=== PATIENT | male | born 1980 | race Caucasian/White ===

== ENCOUNTER 2018-11-07 06:24 | Inpatient (IN) ==
[2018-11-07] MEDS ORDERED: ALUMINUM/MAGNESIUM SUSP 30 ML UDC PO PRN (06:25)
[2018-11-07] MEDS ORDERED: MAGNESIUM HYDROXIDE SUSP 30 ML UDC PO PRN (06:25)
[2018-11-07] MEDS ORDERED: BISMUTH SUBSALICYLATE PER ML OMNICELL CHARGE PO PRN (06:25)
[2018-11-07] MEDS ORDERED: SODIUM CHLORIDE 0.65% NA SOLN 45 ML (OCEAN) PRN (06:25)
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
[2018-11-07] MEDS: AMLODIPINE BESYLATE 5 MG TAB PO SCH (16:59)
[2018-11-07] MEDS: DIVALPROEX EXTENDED RELEASE 500 MG TAB PO SCH (21:18)
[2018-11-07] MEDS: risperiDONE 1 MG TABLET PO SCH (21:18)
[2018-11-08 07:16] LABS: Chol HDL Ratio 4; Cholesterol 165 mg/dl (0-200); HDL Cholesterol 43 mg/dl; LDL Cholesterol Calculated 100 mg/dl; Triglycerides 111 mg/dl (0-150); VLDL Cholesterol 22 mg/dl
[2018-11-08] MEDS: PANTOprazole 40 MG TAB PO SCH (09:17)
[2018-11-08] MEDS: ATORVASTATIN 10 MG TAB PO SCH (09:17)
[2018-11-08] MEDS: LORATADINE 10 MG TAB PO SCH (09:17)
[2018-11-08] MEDS: AMLODIPINE BESYLATE 5 MG TAB PO SCH (09:17)
[2018-11-08] MEDS: risperiDONE 1 MG TABLET PO SCH (09:18)
[2018-11-08] MEDS ORDERED: PALIPERIDONE 3 MG TABCR PO STA (10:54)
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
--- NOTE | 2018-11-08 12:21 | Communication Note ---
Date of Service: November 08, 2018 I have personally evaluated Mr. Davy Clarke today. My findings are that he is floridly psychotic and that he is suffering from Schizophrenia. His thought content includes multiple paranoid delusions regarding [place] drug cartels, mass assassinations of his entire family by "The Mafia and the Drug Cartels," beliefs that certain persons are impostors and are posing as his family members , as well as a fixed belief that he has been cured of all illnesses and that he is here in the hospital solely in order to "get people to call my mother, who is Wai Moran, and make a record of all of the evils that are happening so that the drug marshals will take care of the situation." It is my finding that Mr. Clarke is highly unlikely to recover or improve in the absence of the administration of an antipsychotic medication at this time, and I am in agreement with Dr. Ford's opinion that the administration of an antispychotic medication, such as Invega Sustenna, if necessary against the patient's expressed will, is medically necessary and appropriate.
[2018-11-08] MEDS ORDERED: OLANZapine 10 MG/2.1 ML SDV IM PRN ×2 (12:22→14:26)
[2018-11-08] MEDS ORDERED: PALIPERIDONE PALMITATE 234 MG/1.5 ML SYR IM ONE (12:30)
[2018-11-08] MEDS ORDERED: PALIPERIDONE 3 MG TABCR PO ONE (14:45)
[2018-11-08] MEDS: DIVALPROEX EXTENDED RELEASE 500 MG TAB PO SCH (21:15)
[2018-11-08] MEDS ORDERED: PALIPERIDONE 3 MG TABCR PO SCH (22:00)
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
[2018-11-09] MEDS: ATORVASTATIN 10 MG TAB PO SCH (08:25)
[2018-11-09] MEDS: LORATADINE 10 MG TAB PO SCH (08:25)
[2018-11-09] MEDS: AMLODIPINE BESYLATE 5 MG TAB PO SCH (08:25)
[2018-11-09] MEDS: PANTOprazole 40 MG TAB PO SCH (08:25)
[2018-11-09] MEDS ORDERED: PALIPERIDONE PALMITATE 234 MG/1.5 ML SYR IM SCH (09:00)
[2018-11-09] MEDS ORDERED: HALOPERIDOL 5 MG TAB PO STA (17:16)
[2018-11-09] MEDS: DIVALPROEX EXTENDED RELEASE 500 MG TAB PO SCH (20:50)
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
[2018-11-10] MEDS: LORATADINE 10 MG TAB PO SCH (08:59)
[2018-11-10] MEDS: PANTOprazole 40 MG TAB PO SCH (08:59)
[2018-11-10] MEDS: ATORVASTATIN 10 MG TAB PO SCH (08:59)
[2018-11-10] MEDS: AMLODIPINE BESYLATE 5 MG TAB PO SCH (08:59)
[2018-11-10] MEDS: DIVALPROEX EXTENDED RELEASE 500 MG TAB PO SCH (21:12)
[2018-11-11] MEDS: ATORVASTATIN 10 MG TAB PO SCH (08:54)
[2018-11-11] MEDS: PANTOprazole 40 MG TAB PO SCH (08:54)
[2018-11-11] MEDS: LORATADINE 10 MG TAB PO SCH (08:54)
[2018-11-11] MEDS: AMLODIPINE BESYLATE 5 MG TAB PO SCH (08:54)
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
[2018-11-11] MEDS: HALOPERIDOL 5 MG TAB PO PRN (09:20)
[2018-11-11] MEDS: DIVALPROEX EXTENDED RELEASE 500 MG TAB PO SCH ×2 (10:55→21:07)
[2018-11-12] MEDS: PANTOprazole 40 MG TAB PO SCH (09:18)
[2018-11-12] MEDS: DIVALPROEX EXTENDED RELEASE 500 MG TAB PO SCH ×2 (09:18→20:57)
[2018-11-12] MEDS: LORATADINE 10 MG TAB PO SCH (09:19)
[2018-11-12] MEDS: AMLODIPINE BESYLATE 5 MG TAB PO SCH (09:19)
[2018-11-12] MEDS: ATORVASTATIN 10 MG TAB PO SCH (09:19)
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
[2018-11-12] MEDS: FLUTICASONE PROPIONATE NA SPR 16 GM BTL SCH (13:26)
[2018-11-13] MEDS: DIVALPROEX EXTENDED RELEASE 500 MG TAB PO SCH ×2 (08:43→21:13)
[2018-11-13] MEDS: LORATADINE 10 MG TAB PO SCH (08:43)
[2018-11-13] MEDS: FLUTICASONE PROPIONATE NA SPR 16 GM BTL SCH (08:43)
[2018-11-13] MEDS: ATORVASTATIN 10 MG TAB PO SCH (08:44)
[2018-11-13] MEDS: AMLODIPINE BESYLATE 5 MG TAB PO SCH (08:44)
[2018-11-13] MEDS: PANTOprazole 40 MG TAB PO SCH (08:44)
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
[2018-11-13] MEDS: HALOPERIDOL 5 MG TAB PO PRN (10:16)
[2018-11-14] MEDS: LORATADINE 10 MG TAB PO SCH (08:40)
[2018-11-14] MEDS: DIVALPROEX EXTENDED RELEASE 500 MG TAB PO SCH ×2 (08:40→21:00)
[2018-11-14] MEDS: FLUTICASONE PROPIONATE NA SPR 16 GM BTL SCH (08:40)
[2018-11-14] MEDS: ATORVASTATIN 10 MG TAB PO SCH (08:41)
[2018-11-14] MEDS: AMLODIPINE BESYLATE 5 MG TAB PO SCH (08:41)
[2018-11-14] MEDS: PANTOprazole 40 MG TAB PO SCH (08:41)
--- NOTE | 2018-11-14 11:27 | Psychiatric Progress Note ---
Date of Service November 14, 2018 Impression / Recommendations Impression Making slow progress, but still with pressured speech, racing thoughts and inability to identify these symptoms. Will add Haldol 5 mg BID today to slow him down which he is willing to take. Will continue Sustenna with next injection scheduled for Sat 11/16, as well as depakote. He continues to require inpatient care as he is unable to manipulate information in a reality based manner. (1) Schizophrenia: 11/07/18: - Invega 3mg PO qhs (zyprexa 5mg qhs prn as IM override if refusing PO) 11/08/18: Patient refusing and non-compliant with meds outpatient. Will change risperdal to Invega with plan for WHITMAN sustenna today. Patient has been on Invega before, was improved and tolerated medication per collateral obtained. Will obtain second physician opinion for IM override today. Lipid panel was within normal limits. 303 paperwork filled out, likely court hearing on Sunday. - Increase Depakote ER to 1000mg qhs for mood 11/09 -continue current medications; received Invega Sustenna 234 mg IM today. -Continue Depakote for mood stabilization -patient is hyperverbal, pressured, irritable at times. -303 hearing scheduled for Sunday. We will need family meeting with mother once appropriate. -Continue private room until symptoms are better controlled and he can tolerate a roommate. 11/10 -haloperidol 5 mg every 6 hours as needed for psychosis. -Patient signed a release for his mother, will need to schedule a family meeting once he is less psychotic and able to tolerate it. 11/11: 303 hearing resulted in 20 days, patient has been cooperative and taking medications. Next Invega sustenna dose of 156mg due on 11/16/18. VPA level today was 28 and will increase Depakote ER to 500mg qam and 1000mg qhs. Continue prn haldol. 11/12: Patient seems to be with some improvement in mood and paranoia today. Was redirectable and did not perseverate on the neighbors like yesterday. Did report about his mother and that she is his mother. Nursing reports patient remains erratic and has periods of calm. Continue to treat for stabilization. 11/13: continues to be calm and able to have a conversation and answer questions today. Decreased paranoia, but circumstantial and tangential at times. Denies SI /Hi/aVH. Family meeting with mother on Sunday. 11/14 - Add Haldol 5 mg BID - Continue other meds with next Sustenna injection due on 11/16 - Continue efforts to destimulate (2) Hypertension: - Amlodipine 5mg daily (home med) (3) Hyperlipidemia: - Atovastatin 10mg daily (home med) Inventory Assets Strengths: future oriented, access to care Needs: medications and therapy Risk Factors Assessment Male: Yes : Yes Do You Have Access To A Gun?: No Mental Health Diagnoses: Yes Substance Use Disorders: No Hopelessness: No Protective Factors Assessment Responsible for Young Children: No Employed: No Interval History Identifying Information 38 yo male admitted on a 302 with decompensation of schizophrenia in the setting of medication noncompliance Chief Complaint "Oh I'm good. ". Review of Systems Sleep Information Total Hours of Sleep: 8.25 Sleep Comments: pt on q-15 minute checks Meal Information Percent Meal Consumed - Breakfast: 100 Percent Meal Consumed - Lunch: 100 Percent Meal Consumed - Dinner: 100 Subjective Subjective Patient was seen & assessed and interval progress reviewed with Treatment Team. The patient is noted to talk non stop but will allow me to interrupt him and direct him to the conversation at hand. He is tangential and circumstantial, talking about his mother Nichol and teachers from his past. He admits that his thoughts go "as fast as a I can talk", but denies elevated energy. He thinks that he slept well last night but can't quantify that. He ramble on about having been born deaf, blind and mute and took him years to learn to talk. He randomly says that he has no thoughts to harm his teachers from the past whom he believes did not understand his disabilities. He denies aud/vis hallucinations, denies side effects to medications. He denies physical complaints today including sedation. Physical Exam Psychiatric Orientation: alert and cooperative Apperance: appropriately dressed and appropriately groomed Eye Contact: good eye contact Motor Behavior: steady gait and station and no abnormal motor movements pressured Affect: + blunted affect Mood: no depressed mood and no anxious mood Thought Process: + circumstantial thought process and + tangential thought process Thought Content: + delusions Suicidal Thoughts: denies suicidal thoughts Homicidal Thoughts: denies homicidal thoughts Hallucinations: no auditory hallucinations and no visual hallucinations Cognition: language grossly intact Estimated Intelligence: + below average estimated intelligence Insight: + severely impaired insight Judgement: + severely impaired judgement Vital Signs (Past 24 Hours) Last Vital Signs Temp 36.3 C L 11/14/18 07:01 Pulse 85 11/14/18 07:02 Resp 18 11/14/18 07:01 BP 130/89 11/14/18 07:02 Results & Data Current Inpatient Medications Current Inpatient Medications: Current Inpatient Medications Al Hydrox/Mg Hydrox/Simethicone (Maalox) 30 ml PO Q4H PRN PRN Reason: GI Upset Stop: 12/07/18 06:24 Amlodipine Besylate (Norvasc) 5 mg PO QAM COUNTS INCLUDE 234 BEDS AT [facility] Stop: 12/07/18 15:44 Last Admin: 11/14/18 08:41 Dose: 5 mg Atorvastatin Calcium (Lipitor) 10 mg PO QAM COUNTS INCLUDE 234 BEDS AT [facility] Stop: 12/08/18 08:59 Last Admin: 11/14/18 08:41 Dose: 10 mg Bismuth Subsalicylate (Kaopectate) 15 ml PO PRN PRN PRN Reason: Loose Stool Stop: 12/07/18 06:24 Divalproex Sodium (Depakote Extended Release) 500 mg PO QAM COUNTS INCLUDE 234 BEDS AT [facility] Stop: 12/11/18 10:14 Last Admin: 11/14/18 08:40 Dose: 500 mg Divalproex Sodium (Depakote Extended Release) 1,000 mg PO HS COUNTS INCLUDE 234 BEDS AT [facility] Stop: 12/11/18 21:59 Last Admin: 11/13/18 21:13 Dose: 1,000 mg Fluticasone Propionate (Flonase) 1 sprays NA DAILY COUNTS INCLUDE 234 BEDS AT [facility] Stop: 12/12/18 09:59 Last Admin: 11/14/18 08:40 Dose: 1 sprays Haloperidol (Haldol) 5 mg PO Q4H PRN PRN Reason: psychosis Stop: 12/10/18 08:45 Last Admin: 11/13/18 10:16 Dose: 5 mg Haloperidol (Haldol) 5 mg PO BID COUNTS INCLUDE 234 BEDS AT [facility] Stop: 12/14/18 11:29 Hydroxyzine HCl (Vistaril) 50 mg PO HSZ PRN PRN Reason: Insomnia Stop: 12/07/18 06:24 Hydroxyzine HCl (Vistaril) 25 mg PO Q4H PRN PRN Reason: Anxiety Stop: 12/07/18 06:24 Last Admin: 11/11/18 12:56 Dose: 25 mg Loratadine (Claritin) 10 mg PO QAM SEAN Stop: 12/08/18 08:59 Last Admin: 11/14/18 08:40 Dose: 10 mg Magnesium Hydroxide (Milk Of Magnesia) 30 ml PO DAILY PRN PRN Reason: Heartburn Stop: 12/07/18 06:24 Paliperidone Palmitate (Invega Sustenna) 156 mg IM ONCE ONE Stop: 11/16/18 10:01 Pantoprazole Sodium (Protonix) 40 mg PO QAM COUNTS INCLUDE 234 BEDS AT [facility] Stop: 12/08/18 08:59 Last Admin: 11/14/18 08:41 Dose: 40 mg Sodium Chloride ([place] Nasal) 1 - 2 sprays NA PRN PRN PRN Reason: Nasal Dryness/Congestion Stop: 12/07/18 06:24 Post Discharge Appointments Primary Care Physician Name Of Family Doctor: unknown Psychiatrist Name of Psychiatrist: [facility] Appointment Comment: [facility] [address], [place] [address] [address] Auto Cleaner Name of Auto Cleaner: [facility] Phone Number for Auto Cleaner: [phone] Date of Appointment with Auto Cleaner: 11/21/18 Time of Appointment with Auto Cleaner: 10am Case Management Appointment Comment: [address] [place] [address] Contact Information Discharge Discharge Address: [address] [place], [place] [address] [facility] CPT Code CPT Code 73108 _ (1) Schizophrenia Schizophrenia type: paranoid schizophrenia Qualified Code(s): F20.0 - Paranoid schizophrenia (2) Hypertension Hypertension type: unspecified Qualified Code(s): I10 - Essential (primary) hypertension (3) Hyperlipidemia Hyperlipidemia type: unspecified Qualified Code(s): E78.5 - Hyperlipidemia, unspecified
[2018-11-14] MEDS: HALOPERIDOL 5 MG TAB PO SCH ×2 (11:47→21:00)
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
[2018-11-15] MEDS: LORATADINE 10 MG TAB PO SCH (10:09)
[2018-11-15] MEDS: FLUTICASONE PROPIONATE NA SPR 16 GM BTL SCH (10:09)
[2018-11-15] MEDS: ATORVASTATIN 10 MG TAB PO SCH (10:10)
[2018-11-15] MEDS: DIVALPROEX EXTENDED RELEASE 500 MG TAB PO SCH ×2 (10:10→21:36)
[2018-11-15] MEDS: PANTOprazole 40 MG TAB PO SCH (10:12)
[2018-11-15] MEDS: AMLODIPINE BESYLATE 5 MG TAB PO SCH (10:12)
[2018-11-15] MEDS: HALOPERIDOL 5 MG TAB PO SCH ×2 (10:14→21:36)
[2018-11-15] MEDS: HALOPERIDOL 5 MG TAB PO PRN (13:44)
[2018-11-16] MEDS: DIVALPROEX EXTENDED RELEASE 500 MG TAB PO SCH ×2 (08:32→21:47)
[2018-11-16] MEDS: LORATADINE 10 MG TAB PO SCH (08:32)
[2018-11-16] MEDS: FLUTICASONE PROPIONATE NA SPR 16 GM BTL SCH (08:32)
[2018-11-16] MEDS: ATORVASTATIN 10 MG TAB PO SCH (08:33)
[2018-11-16] MEDS: PANTOprazole 40 MG TAB PO SCH (08:33)
[2018-11-16] MEDS: AMLODIPINE BESYLATE 5 MG TAB PO SCH (08:33)
[2018-11-16] MEDS: HALOPERIDOL 5 MG TAB PO SCH ×2 (08:33→21:47)
[2018-11-16] MEDS ORDERED: PALIPERIDONE PALMITATE 156 MG/ML SYR IM ONE (10:00)
--- NOTE | 2018-11-16 13:02 | Psychiatric Progress Note ---
Date of Service November 16, 2018 Impression / Recommendations Impression 38 yo CM with h/o schizophrenia who was admitted for acute decompensation. Patient started on invega WHITMAN and received second dose today. Also depakote was started and patient seems to be improved since admission. Seems that yesterday familiy meeting with mother was somewhat erratic and patient will need continued work on coping skills to show stability. Will observe for improvement after second invega dose today and work on discharge planning. At this time gualberto denies SI/HI/aVH and has much decreased paranoid delusions from admission. (1) Schizophrenia: 11/07/18: - Invega 3mg PO qhs (zyprexa 5mg qhs prn as IM override if refusing PO) 11/08/18: Patient refusing and non-compliant with meds outpatient. Will change risperdal to Invega with plan for WHITMAN sustenna today. Patient has been on Invega before, was improved and tolerated medication per collateral obtained. Will obtain second physician opinion for IM override today. Lipid panel was within normal limits. 303 paperwork filled out, likely court hearing on Sunday. - Increase Depakote ER to 1000mg qhs for mood 11/09 -continue current medications; received Invega Sustenna 234 mg IM today. -Continue Depakote for mood stabilization -patient is hyperverbal, pressured, irritable at times. -303 hearing scheduled for Sunday. We will need family meeting with mother once appropriate. -Continue private room until symptoms are better controlled and he can tolerate a roommate. 11/10 -haloperidol 5 mg every 6 hours as needed for psychosis. -Patient signed a release for his mother, will need to schedule a family meeting once he is less psychotic and able to tolerate it. 11/11: 303 hearing resulted in 20 days, patient has been cooperative and taking medications. Next Invega sustenna dose of 156mg due on 11/16/18. VPA level today was 28 and will increase Depakote ER to 500mg qam and 1000mg qhs. Continue prn haldol. 11/12: Patient seems to be with some improvement in mood and paranoia today. Was redirectable and did not perseverate on the neighbors like yesterday. Did report about his mother and that she is his mother. Nursing reports patient remains erratic and has periods of calm. Continue to treat for stabilization. 11/13: continues to be calm and able to have a conversation and answer questions today. Decreased paranoia, but circumstantial and tangential at times. Denies SI /Hi/aVH. Family meeting with mother on Tuesday 11/14 - Add Haldol 5 mg BID - Continue other meds with next Sustenna injection due on 11/16 - Continue efforts to destimulate 11/15 - Continue current medication regimen - Second loading injection for Sustenna scheduled for 11/16 - Family meeting scheduled for this afternoon with his mother 11/16 -Continue treatment for stabilization -Second loading invega given today (2) Hypertension: - Amlodipine 5mg daily (home med) (3) Hyperlipidemia: - Atovastatin 10mg daily (home med) Inventory Assets Strengths: future oriented, access to care Needs: medications and therapy Risk Factors Assessment Male: Yes : Yes Do You Have Access To A Gun?: No Mental Health Diagnoses: Yes Substance Use Disorders: No Hopelessness: No Protective Factors Assessment Responsible for Young Children: No Employed: No Interval History Identifying Information 38 yo male admitted on a 302 with decompensation of schizophrenia in the setting of medication noncompliance. Pt was admitted involuntarily on 11/07/18 13:50, 303 was granted on 11/11/18. Chief Complaint "I'm ok". Review of Systems Sleep Information Total Hours of Sleep: 7.75 Sleep Comments: pt on q-15 minute checks Meal Information Percent Meal Consumed - Breakfast: 100 Percent Meal Consumed - Lunch: 100 Percent Meal Consumed - Dinner: 100 Subjective Subjective Patient reports that he is working on his coping skills to control his anger and mood. He states he got the invega shot today and is kind of sleepy. States he wants to help his mother, but he needs to let her be and only help when she asks, to avoid problems. He denies SI/HI/AVH. Per nursing, patient is calm and cooperative on the unit. Patient was seen & assessed and interval progress reviewed with Treatment Team and Nursing Physical Exam Psychiatric A+Ox3, euthymic affect Apperance: appropriately dressed and appropriately groomed Eye Contact: good eye contact Motor Behavior: no abnormal motor movements Speech: normal rate/rhythm/volume of speech Affect: euthymic affect and mood congruent with affect Thought Process: goal directed thought process and + circumstantial thought process Thought Content: not paranoid and no delusions Suicidal Thoughts: denies suicidal thoughts Homicidal Thoughts: denies homicidal thoughts Hallucinations: no auditory hallucinations and no visual hallucinations denies Cognition: recent memory grossly intact and remote memory grossly intact Estimated Intelligence: + below average estimated intelligence improving improving Vital Signs (Past 24 Hours) Last Vital Signs Temp 36.5 C 11/16/18 06:39 Pulse 90 11/16/18 06:39 Resp 18 11/16/18 06:39 BP 123/90 11/16/18 06:39 Results & Data Current Inpatient Medications Current Inpatient Medications: Current Inpatient Medications Al Hydrox/Mg Hydrox/Simethicone (Maalox) 30 ml PO Q4H PRN PRN Reason: GI Upset Stop: 12/07/18 06:24 Amlodipine [facility] ([facility]) [facility]: 12/07/18 15:44 Last Admin: 11/16/18 08:33 Dose: 5 mg Atorvastatin Calcium (Lipitor) 10 [facility] [place] Stop: 12/08/18 08:59 Last Admin: 11/16/18 08:33 Dose: 10 mg Bismuth Subsalicylate (Kaopectate) 15 ml PO PRN PRN PRN Reason: Loose Stool Stop: 12/07/18 06:24 Divalproex Sodium (Depakote Extended Release) 500 mg [facility] [place] Stop: 12/11/18 10:14 Last Admin: 11/16/18 08:32 Dose: 500 mg Divalproex Sodium (Depakote Extended Release) 1,000 mg PO [facility] Stop: 12/11/18 21:59 Last Admin: 11/15/18 21:36 Dose: 1,000 mg Fluticasone Propionate (Flonase) 1 sprays NA DAILY [facility] Stop: 12/12/18 09:59 Last Admin: 11/16/18 08:32 Dose: 1 sprays Haloperidol (Haldol) 5 mg PO Q4H PRN PRN Reason: psychosis Stop: 12/10/18 08:45 Last Admin: 11/15/18 13:44 Dose: 5 mg Haloperidol (Haldol) 5 mg PO BID [facility] Stop: 12/14/18 11:29 Last Admin: 11/16/18 08:33 Dose: 5 mg Hydroxyzine HCl (Vistaril) 50 mg PO HSZ PRN PRN Reason: Insomnia Stop: 12/07/18 06:24 Hydroxyzine HCl (Vistaril) 25 mg PO Q4H PRN PRN Reason: Anxiety Stop: 12/07/18 06:24 Last Admin: 11/11/18 12:56 Dose: 25 mg Loratadine (Claritin) 10 mg PO QAM [facility] Stop: 12/08/18 08:59 Last Admin: 11/16/18 08:32 Dose: 10 mg Magnesium Hydroxide (Milk Of Magnesia) 30 ml PO DAILY PRN PRN Reason: Heartburn Stop: 12/07/18 06:24 Pantoprazole Sodium (Protonix) 40 mg PO QAM [facility] Stop: 12/08/18 08:59 Last Admin: 11/16/18 08:33 Dose: 40 mg Sodium Chloride ([place] Nasal) 1 - 2 sprays NA PRN PRN PRN Reason: Nasal Dryness/Congestion Stop: 12/07/18 06:24 Post Discharge Appointments Primary Care Physician Name Of Family Doctor: [facility] - Dr Rodrick Antonio Primary Care Date of Appointment with PCP: 11/25/18 Time of Appointment with PCP: 9am Provider Appointment Comment: [address] [address], [place] [address] Psychiatrist Name of Psychiatrist: [facility] - to be set after intake completed Psychiatrist's Time of Appointment with Psychiatrist: Walk-ins: Tues, Wed, and Thur between 8- 3pm Psychiatric Appointment Comment: [address], [place] [address] Therapist Name of Therapist: [facility] - Intake is walk-in only Therapist's Date of Therapist Appointment: 11/19/18 Time of Therapist Appointment: Walk-ins: Tues, Wed, and Thur between 8-3pm Therapy Appointment Comment: [address], [address], [place] [address] Compensation Specialist Name of Compensation Specialist: [facility] Phone Number for Compensation Specialist: [phone] Date of Appointment with Compensation Specialist: 11/21/18 Time of Appointment with Compensation Specialist: 10am Case Management Appointment Comment: [address] [place] [address] Partial or Psych Rehab Name of Partial or Psych Rehab: [facility] Phone Number of Partial or Psych Rehab: [phone] Partial or Psych Rehab Appointment Comment: [address] [place], [place] [address] [address] Senior Center Manager Name of Senior Center Manager: [facility] Phone Number of Senior Center Manager: [phone] Senior Center Manager Appointment Comment: [address] [place], [place] [address] [address] Contact Information Discharge Discharge Address: [address] [place] [address] [place] [address] CPT Code CPT Code 02711 _ (1) Schizophrenia Schizophrenia type: paranoid schizophrenia Qualified Code(s): F20.0 - Paranoid schizophrenia (2) Hypertension Hypertension type: unspecified Qualified Code(s): I10 - Essential (primary) hypertension (3) Hyperlipidemia Hyperlipidemia type: unspecified Qualified Code(s): E78.5 - Hyperlipidemia, unspecified
[2018-11-17] MEDS: DIVALPROEX EXTENDED RELEASE 500 MG TAB PO SCH ×2 (08:53→21:29)
[2018-11-17] MEDS: LORATADINE 10 MG TAB PO SCH (08:53)
[2018-11-17] MEDS: FLUTICASONE PROPIONATE NA SPR 16 GM BTL SCH (08:53)
[2018-11-17] MEDS: AMLODIPINE BESYLATE 5 MG TAB PO SCH (08:54)
[2018-11-17] MEDS: HALOPERIDOL 5 MG TAB PO SCH ×2 (08:54→21:29)
[2018-11-17] MEDS: PANTOprazole 40 MG TAB PO SCH (08:54)
[2018-11-17] MEDS: ATORVASTATIN 10 MG TAB PO SCH (08:54)
--- NOTE | 2018-11-17 12:19 | Psychiatric Progress Note ---
Date of Service November 17, 2018 Impression / Recommendations Impression 38 yo CM with h/o schizophrenia who was admitted for acute decompensation. Patient started on invega CHURCH and received second dose today. Also depakote was started and patient seems to be improved since admission. Seems that 11/15 familiy meeting with mother was somewhat erratic and patient will need continued work on coping skills to show stability. Will observe for improvement after second invega dose and work on discharge planning. (1) Schizophrenia: 11/07/18: - Invega 3mg PO qhs (zyprexa 5mg qhs prn as IM override if refusing PO) 11/08/18: Patient refusing and non-compliant with meds outpatient. Will change risperdal to Invega with plan for CHURCH sustenna today. Patient has been on Invega before, was improved and tolerated medication per collateral obtained. Will obtain second physician opinion for IM override today. Lipid panel was within normal limits. 303 paperwork filled out, likely court hearing on Sunday. - Increase Depakote ER to 1000mg qhs for mood 11/09 -continue current medications; received Invega Sustenna 234 mg IM today. -Continue Depakote for mood stabilization -patient is hyperverbal, pressured, irritable at times. -303 hearing scheduled for Sunday. We will need family meeting with mother once appropriate. -Continue private room until symptoms are better controlled and he can tolerate a roommate. 11/10 -haloperidol 5 mg every 6 hours as needed for psychosis. -Patient signed a release for his mother, will need to schedule a family meeting once he is less psychotic and able to tolerate it. 11/11: 303 hearing resulted in 20 days, patient has been cooperative and taking medications. Next Invega sustenna dose of 156mg due on 11/16/18. VPA level today was 28 and will increase Depakote ER to 500mg qam and 1000mg qhs. Continue prn haldol. 11/12: Patient seems to be with some improvement in mood and paranoia today. Was redirectable and did not perseverate on the neighbors like yesterday. Did report about his mother and that she is his mother. Nursing reports patient remains erratic and has periods of calm. Continue to treat for stabilization. 11/13: continues to be calm and able to have a conversation and answer questions today. Decreased paranoia, but circumstantial and tangential at times. Denies SI /Hi/aVH. Family meeting with mother on Tuesday 11/14 - Add Haldol 5 mg BID - Continue other meds with next Sustenna injection due on 11/16 - Continue efforts to destimulate 11/15 - Continue current medication regimen - Second loading injection for Sustenna scheduled for 11/16 - Family meeting scheduled for this afternoon with his mother 11/16 -Continue treatment for stabilization -Second loading invega given today 11/17 -Continue current medications -No side effects from invega noted -discharge planning (2) Hypertension: - Amlodipine 5mg daily (home med) (3) Hyperlipidemia: - Atovastatin 10mg daily (home med) Inventory Assets Strengths: future oriented, access to care Needs: medications and therapy Risk Factors Assessment Male: Yes : Yes Do You Have Access To A Gun?: No Mental Health Diagnoses: Yes Substance Use Disorders: No Hopelessness: No Protective Factors Assessment Responsible for Young Children: No Employed: No Interval History Identifying Information 38 yo male admitted on a 302 with decompensation of schizophrenia in the setting of medication noncompliance. Pt was admitted involuntarily on 11/07/18 13:50, 303 was granted on 11/11/18. Review of Systems Sleep Information Total Hours of Sleep: 7.75 Sleep Comments: pt on q-15 minute checks Meal Information Percent Meal Consumed - Breakfast: 100 Percent Meal Consumed - Lunch: 100 Percent Meal Consumed - Dinner: 100 Subjective Subjective Patient reports he is feeling ok today and was found laying in bed. States that he feels he needed some rest so was laying down. Denies Si/HI/aVH and denies feeling any side effects from the invega church given yesterday. He states "I just gotta let my mom worry about her own things and me worry about mine, then things will be ok". He was encouraged to call his mother and talk to her as a follow up to a less than ideal family meeting recently. Per nursing, patient has remained stable and cooperative on unit. Patient was seen & assessed and interval progress reviewed with Treatment Team and Nursing Physical Exam Psychiatric A+Ox3, euthymic affect Apperance: appropriately dressed and appropriately groomed Eye Contact: + fair eye contact Motor Behavior: no abnormal motor movements Speech: normal rate/rhythm/volume of speech Affect: euthymic affect and mood congruent with affect Thought Process: linear/logical thought process Thought Content: not paranoid and no delusions Suicidal Thoughts: denies suicidal thoughts Homicidal Thoughts: denies homicidal thoughts Hallucinations: no auditory hallucinations and no visual hallucinations Cognition: recent memory grossly intact and remote memory grossly intact Estimated Intelligence: + below average estimated intelligence improving improving Vital Signs (Past 24 Hours) Last Vital Signs Temp 36.7 C 11/17/18 06:31 Pulse 105 H 11/17/18 06:32 Resp 16 11/17/18 06:31 BP 119/70 11/17/18 06:32 Results & Data Current Inpatient Medications Current Inpatient Medications: Current Inpatient Medications Al Hydrox/Mg Hydrox/Simethicone (Maalox) 30 ml PO Q4H PRN PRN Reason: GI Upset Stop: 12/07/18 06:24 Amlodipine Bes[facility]) [facility] Stop: 12/07/18 15:44 Last Admin: 11/17/18 08:54 Dose: 5 mg Atorvastatin Calcium (Lipitor) [facility] Stop: 12/08/18 08:59 Last Admin: 11/17/18 08:54 Dose: 10 mg Bismuth Subsalicylate (Kaopectate) 15 ml PO PRN PRN PRN Reason: Loose Stool Stop: 12/07/18 06:24 Divalproex Sodium (Depakote Extended Release) 500 mg PO QAM [facility] Stop: 12/11/18 10:14 Last Admin: 11/17/18 08:53 Dose: 500 mg Divalproex Sodium (Depakote Extended Release) 1,000 mg PO HS [facility] Stop: 12/11/18 21:59 Last Admin: 11/16/18 21:47 Dose: 1,000 mg Fluticasone Propionate (Flonase) 1 sprays NA DAILY [facility] Stop: 12/12/18 09:59 Last Admin: 11/17/18 08:53 Dose: 1 sprays Haloperidol (Haldol) 5 mg PO Q4H PRN PRN Reason: psychosis Stop: 12/10/18 08:45 Last Admin: 11/15/18 13:44 Dose: 5 mg Haloperidol (Haldol) 5 mg PO BID [facility] Stop: 12/14/18 11:29 Last Admin: 11/17/18 08:54 Dose: 5 mg Hydroxyzine HCl (Vistaril) 50 mg PO HSZ PRN PRN Reason: Insomnia Stop: 12/07/18 06:24 Hydroxyzine HCl (Vistaril) 25 mg PO Q4H PRN PRN Reason: Anxiety Stop: 12/07/18 06:24 Last Admin: 11/11/18 12:56 Dose: 25 mg Loratadine (Claritin) 10 mg PO QAM [facility] Stop: 12/08/18 08:59 Last Admin: 11/17/18 08:53 Dose: 10 mg Magnesium Hydroxide (Milk Of Magnesia) 30 ml PO DAILY PRN PRN Reason: Heartburn Stop: 12/07/18 06:24 Pantoprazole Sodium (Protonix) 40 mg PO QAM [facility] Stop: 12/08/18 08:59 Last Admin: 11/17/18 08:54 Dose: 40 mg Sodium Chloride (Cuthbert Nasal) 1 - 2 sprays NA PRN PRN PRN Reason: Nasal Dryness/Congestion Stop: 12/07/18 06:24 Post Discharge Appointments Primary Care Physician Name Of Family Doctor: [facility] - Dr Rodrick Antonio Primary Care Date of Appointment with PCP: 11/25/18 Time of Appointment with PCP: 9am Provider Appointment Comment: [address], [place] [address] Psychiatrist Name of Psychiatrist: [facility] - to be set after intake completed Psychiatrist's Time of Appointment with Psychiatrist: Walk-ins: Tues, Wed, and Thur between 8- 3pm Psychiatric Appointment Comment: [address], [place] [address] Therapist Name of Therapist: [facility] - Intake is walk-in only Therapist's Date of Therapist Appointment: 11/19/18 Time of Therapist Appointment: Walk-ins: Tues, Wed, and Thur between 8-3pm Therapy Appointment Comment: [address], [place] [address] Industrial Photographer Name of Industrial Photographer: [facility] Phone Number for Industrial Photographer: [phone] Date of Appointment with Industrial Photographer: 11/21/18 Time of Appointment with Industrial Photographer: 10am Case Management Appointment Comment: [address] [place] [address] Partial or Psych Rehab Name of Partial or Psych Rehab: [facility] Phone Number of Partial or Psych Rehab: [phone] Partial or Psych Rehab Appointment Comment: [address] [place], [place] [address] [address] Railcar Switcher Name of Railcar Switcher: [facility] Phone Number of Railcar Switcher: [phone] Railcar Switcher Appointment Comment: [address] [place], [place] [address] [address] Contact Information Discharge Discharge Address: [address] [place], [place] [address] [address] CPT Code CPT Code 38809 _ (1) Schizophrenia Schizophrenia type: paranoid schizophrenia Qualified Code(s): F20.0 - Paranoid schizophrenia (2) Hypertension Hypertension type: unspecified Qualified Code(s): I10 - Essential (primary) hypertension (3) Hyperlipidemia Hyperlipidemia type: unspecified Qualified Code(s): E78.5 - Hyperlipidemia, unspecified
[2018-11-18] MEDS: AMLODIPINE BESYLATE 5 MG TAB PO SCH (08:35)
[2018-11-18] MEDS: ATORVASTATIN 10 MG TAB PO SCH (08:35)
[2018-11-18] MEDS: HALOPERIDOL 5 MG TAB PO SCH ×2 (08:35→21:19)
[2018-11-18] MEDS: PANTOprazole 40 MG TAB PO SCH (08:35)
[2018-11-18] MEDS: LORATADINE 10 MG TAB PO SCH (08:35)
[2018-11-18] MEDS: DIVALPROEX EXTENDED RELEASE 500 MG TAB PO SCH ×2 (08:36→21:19)
[2018-11-18] MEDS: FLUTICASONE PROPIONATE NA SPR 16 GM BTL SCH (08:36)
--- NOTE | 2018-11-18 09:37 | Psychiatric Progress Note ---
Date of Service November 18, 2018 Impression / Recommendations Impression 38 yo CM with h/o schizophrenia who was admitted for acute decompensation. Patient started on invega WHITMAN and received second dose today. Also depakote was started and patient seems to be improved since admission. Seems that 11/15 familiy meeting with mother was somewhat erratic and patient will need continued work on coping skills to show stability. Patient is with improved insight and mood stability. Discharge planning with follow ups and collateral pending. Patient denies SI/HI/aVH and if remains stable without safety concerns , will plan for discharge tomorrow. (1) Schizophrenia: 11/07/18: - Invega 3mg PO qhs (zyprexa 5mg qhs prn as IM override if refusing PO) 11/08/18: Patient refusing and non-compliant with meds outpatient. Will change risperdal to Invega with plan for WHITMAN sustenna today. Patient has been on Invega before, was improved and tolerated medication per collateral obtained. Will obtain second physician opinion for IM override today. Lipid panel was within normal limits. 303 paperwork filled out, likely court hearing on Sunday. - Increase Depakote ER to 1000mg qhs for mood 11/09 -continue current medications; received Invega Sustenna 234 mg IM today. -Continue Depakote for mood stabilization -patient is hyperverbal, pressured, irritable at times. -303 hearing scheduled for Sunday. We will need family meeting with mother once appropriate. -Continue private room until symptoms are better controlled and he can tolerate a roommate. 11/10 -haloperidol 5 mg every 6 hours as needed for psychosis. -Patient signed a release for his mother, will need to schedule a family meeting once he is less psychotic and able to tolerate it. 11/11: 303 hearing resulted in 20 days, patient has been cooperative and taking medications. Next Invega sustenna dose of 156mg due on 11/16/18. VPA level today was 28 and will increase Depakote ER to 500mg qam and 1000mg qhs. Continue prn haldol. 11/12: Patient seems to be with some improvement in mood and paranoia today. Was redirectable and did not perseverate on the neighbors like yesterday. Did report about his mother and that she is his mother. Nursing reports patient remains erratic and has periods of calm. Continue to treat for stabilization. 11/13: continues to be calm and able to have a conversation and answer questions today. Decreased paranoia, but circumstantial and tangential at times. Denies SI /Hi/aVH. Family meeting with mother on Tuesday 11/14 - Add Haldol 5 mg BID - Continue other meds with next Sustenna injection due on 11/16 - Continue efforts to destimulate 11/15 - Continue current medication regimen - Second loading injection for Sustenna scheduled for 11/16 - Family meeting scheduled for this afternoon with his mother 11/16 -Continue treatment for stabilization -Second loading invega given today 11/17 -Continue current medications -No side effects from invega noted -discharge planning 11/18 -Continue current regimen -work on coping mechanisms -discharge planning (2) Hypertension: - Amlodipine 5mg daily (home med) (3) Hyperlipidemia: - Atovastatin 10mg daily (home med) Inventory Assets Strengths: future oriented, access to care Needs: medications and therapy Risk Factors Assessment Male: Yes : Yes Do You Have Access To A Gun?: No Mental Health Diagnoses: Yes Substance Use Disorders: No Hopelessness: No Protective Factors Assessment Responsible for Young Children: No Employed: No Interval History Identifying Information 38 yo male admitted on a 302 with decompensation of schizophrenia in the setting of medication noncompliance. Pt was admitted involuntarily on 11/07/18 13:50, 303 was granted on 11/11/18. Chief Complaint "I'm ok". Review of Systems Sleep Information Total Hours of Sleep: 7 Sleep Comments: pt on q-15 minute checks Meal Information Percent Meal Consumed - Breakfast: 100 Percent Meal Consumed - Lunch: 100 Percent Meal Consumed - Dinner: 100 Subjective Subjective Patient reports he took a shower this morning and feels refreshed. He states that he tried to contact his mother yesterday but couldn't get in touch with her. Reports that he has been working on his anger and if he were to feel this way at home, would go for a walk or join the choir group that helps him calm down. He states he can live with a friend if his mother doesn't want him there. He denies any major difficulty with sleep and denies SI/HI/aVH. Per nursing he has been compliant with meds and is cooperative on the unit. Patient was seen & assessed and interval progress reviewed with Treatment Team and Nursing Physical Exam Psychiatric A+Ox3, euthymic affect Apperance: appropriately dressed and appropriately groomed Eye Contact: + fair eye contact Motor Behavior: no abnormal motor movements Speech: normal rate/rhythm/volume of speech Affect: euthymic affect and mood congruent with affect Thought Process: linear/logical thought process Thought Content: not paranoid and no delusions Suicidal Thoughts: denies suicidal thoughts Homicidal Thoughts: denies homicidal thoughts Hallucinations: no auditory hallucinations and no visual hallucinations Cognition: recent memory grossly intact Estimated Intelligence: + below average estimated intelligence Insight: + fair insight Judgement: + fair judgement Vital Signs (Past 24 Hours) Last Vital Signs Temp 36.6 C 11/18/18 07:00 Pulse 99 H 11/18/18 07:01 Resp 18 11/18/18 07:00 BP 117/81 11/18/18 07:01 Results & Data Current Inpatient Medications Current Inpatient Medications: Current Inpatient Medications Al Hydrox/Mg Hydrox/Simethicone (Maalox) 30 ml PO Q4H PRN PRN Reason: GI Upset Stop: 12/07/18 06:24 Amlodipine Besylate (Norvasc) 5 mg PO QAM [facility] Stop: 12/07/18 15:44 Last Admin: 11/18/18 08:35 Dose: 5 mg Atorvastatin Calcium (Lipitor) 10 mg PO QAM [facility] Stop: 12/08/18 08:59 Last Admin: 11/18/18 08:35 Dose: 10 mg Bismuth Subsalicylate (Kaopectate) 15 ml PO PRN PRN PRN Reason: Loose Stool Stop: 12/07/18 06:24 Divalproex Sodium (Depakote Extended Release) 500 mg PO QAM [facility] Stop: 12/11/18 10:14 Last Admin: 11/18/18 08:36 Dose: 500 mg Divalproex Sodium (Depakote Extended Release) 1,000 mg PO HS [facility] Stop: 12/11/18 21:59 Last Admin: 11/17/18 21:29 Dose: 1,000 mg Fluticasone Propionate (Flonase) 1 sprays NA DAILY [facility] Stop: 12/12/18 09:59 Last Admin: 11/18/18 08:36 Dose: 1 sprays Haloperidol (Haldol) 5 mg PO Q4H PRN PRN Reason: psychosis Stop: 12/10/18 08:45 Last Admin: 11/15/18 13:44 Dose: 5 mg Haloperidol (Haldol) 5 mg PO BID [facility] Stop: 12/14/18 11:29 Last Admin: 11/18/18 08:35 Dose: 5 mg Hydroxyzine HCl (Vistaril) 50 mg PO HSZ PRN PRN Reason: Insomnia Stop: 12/07/18 06:24 Hydroxyzine HCl (Vistaril) 25 mg PO Q4H PRN PRN Reason: Anxiety Stop: 12/07/18 06:24 Last Admin: 11/11/18 12:56 Dose: 25 mg Loratadine (Claritin) 10 mg PO QAM [facility] Stop: 12/08/18 08:59 Last Admin: 11/18/18 08:35 Dose: 10 mg Magnesium Hydroxide (Milk Of Magnesia) 30 ml PO DAILY PRN PRN Reason: Heartburn Stop: 12/07/18 06:24 Pantoprazole Sodium (Protonix) 40 mg PO QAM [facility] Stop: 12/08/18 08:59 Last Admin: 11/18/18 08:35 Dose: 40 mg Sodium Chloride (Brilliant Nasal) 1 - 2 sprays NA PRN PRN PRN Reason: Nasal Dryness/Congestion Stop: 12/07/18 06:24 Post Discharge Appointments Primary Care Physician Name Of Family Doctor: [facility] - Dr Rodrick Antonio Primary Care Date of Appointment with PCP: 11/25/18 Time of Appointment with PCP: 9am Provider Appointment Comment: [address], [place] [address] Psychiatrist Name of Psychiatrist: [facility] - to be set after intake completed Psychiatrist's Time of Appointment with Psychiatrist: Walk-ins: Tues, Wed, and Thur between 8- 3pm Psychiatric Appointment Comment: [address], [place] [address] Therapist Name of Therapist: [facility] - Intake is walk-in only Therapist's Date of Therapist Appointment: 11/19/18 Time of Therapist Appointment: Walk-ins: Tues, Wed, and Thur between 8-3pm Therapy Appointment Comment: [address], [place] [address] Blood Bank Laboratory Technologist Name of Blood Bank Laboratory Technologist: [facility] Phone Number for Blood Bank Laboratory Technologist: [phone] Date of Appointment with Blood Bank Laboratory Technologist: 11/21/18 Time of Appointment with Blood Bank Laboratory Technologist: 10am Case Management Appointment Comment: [address] [facility] [place] [address] Partial or Psych Rehab Name of Partial or Psych Rehab: [facility] Phone Number of Partial or Psych Rehab: [phone] Partial or Psych Rehab Appointment Comment: [address] [place] [address] Garden Tractor Mechanic Name of Garden Tractor Mechanic: [facility] Phone Number of Garden Tractor Mechanic: [phone] Garden Tractor Mechanic Appointment Comment: [address] [place], [place] [address] [address] Contact Information Discharge Discharge Address: [address] [place], [place] [address] [facility] CPT Code CPT Code 06576 [id number] _ (1) Schizophrenia Schizophrenia type: paranoid schizophrenia Qualified Code(s): F20.0 - Paranoid schizophrenia (2) Hypertension Hypertension type: unspecified Qualified Code(s): I10 - Essential (primary) hypertension (3) Hyperlipidemia Hyperlipidemia type: unspecified Qualified Code(s): E78.5 - Hyperlipidemia, unspecified
[2018-11-18] MEDS: CITALOPRAM 20 MG TAB PO SCH (15:28)
[2018-11-19] MEDS: FLUTICASONE PROPIONATE NA SPR 16 GM BTL SCH (07:47)
[2018-11-19] MEDS: CITALOPRAM 20 MG TAB PO SCH (07:48)
[2018-11-19] MEDS: HALOPERIDOL 5 MG TAB PO SCH ×2 (07:51→21:12)
[2018-11-19] MEDS: PANTOprazole 40 MG TAB PO SCH (07:52)
[2018-11-19] MEDS: ATORVASTATIN 10 MG TAB PO SCH (07:52)
[2018-11-19] MEDS: AMLODIPINE BESYLATE 5 MG TAB PO SCH (07:52)
[2018-11-19] MEDS: LORATADINE 10 MG TAB PO SCH (07:54)
[2018-11-19] MEDS: DIVALPROEX EXTENDED RELEASE 500 MG TAB PO SCH ×2 (08:35→21:12)
--- NOTE | 2018-11-19 10:49 | Psychiatric Progress Note ---
Date of Service November 19, 2018 Impression / Recommendations Impression 38 yo CM with h/o schizophrenia who was admitted for acute decompensation. Patient started on invega WHITMAN and received second dose today. Also depakote was started and patient seems to be improved since admission. Seems that 11/15 familiy meeting with mother was somewhat erratic and patient will need continued work on coping skills to show stability. Patient is with improved insight and mood stability. Discharge planning with follow ups and collateral pending. Discharge held yesterday due to med addition and transport scheduling. Today, patient tolerating meds, denies SI/HI/aVH and remains stable without safety concerns, will plan for discharge tomorrow. (1) Schizophrenia: 11/07/18: - Invega 3mg PO qhs (zyprexa 5mg qhs prn as IM override if refusing PO) 11/08/18: Patient refusing and non-compliant with meds outpatient. Will change risperdal to Invega with plan for WHITMAN sustenna today. Patient has been on Invega before, was improved and tolerated medication per collateral obtained. Will obtain second physician opinion for IM override today. Lipid panel was within normal limits. 303 paperwork filled out, likely court hearing on Sunday. - Increase Depakote ER to 1000mg qhs for mood 11/09 -continue current medications; received Invega Sustenna 234 mg IM today. -Continue Depakote for mood stabilization -patient is hyperverbal, pressured, irritable at times. -303 hearing scheduled for Sunday. We will need family meeting with mother once appropriate. -Continue private room until symptoms are better controlled and he can tolerate a roommate. 11/10 -haloperidol 5 mg every 6 hours as needed for psychosis. -Patient signed a release for his mother, will need to schedule a family meeting once he is less psychotic and able to tolerate it. 11/11: 303 hearing resulted in 20 days, patient has been cooperative and taking medications. Next Invega sustenna dose of 156mg due on 11/16/18. VPA level today was 28 and will increase Depakote ER to 500mg qam and 1000mg qhs. Continue prn haldol. 11/12: Patient seems to be with some improvement in mood and paranoia today. Was redirectable and did not perseverate on the neighbors like yesterday. Did report about his mother and that she is his mother. Nursing reports patient remains erratic and has periods of calm. Continue to treat for stabilization. 11/13: continues to be calm and able to have a conversation and answer questions today. Decreased paranoia, but circumstantial and tangential at times. Denies SI /Hi/aVH. Family meeting with mother on Tuesday 11/14 - Add Haldol 5 mg BID - Continue other meds with next Sustenna injection due on 11/16 - Continue efforts to destimulate 11/15 - Continue current medication regimen - Second loading injection for Sustenna scheduled for 11/16 - Family meeting scheduled for this afternoon with his mother 11/16 -Continue treatment for stabilization -Second loading invega given today 11/17 -Continue current medications -No side effects from invega noted -discharge planning 11/18 -Continue current regimen -work on coping mechanisms -discharge planning 11/19 -Continue current regimen -Discharge planning (2) Hypertension: - Amlodipine 5mg daily (home med) (3) Hyperlipidemia: - Atovastatin 10mg daily (home med) Inventory Assets Strengths: future oriented, access to care Needs: medications and therapy Risk Factors Assessment Male: Yes : Yes Do You Have Access To A Gun?: No Mental Health Diagnoses: Yes Substance Use Disorders: No Hopelessness: No Protective Factors Assessment Responsible for Young Children: No Employed: No Interval History Identifying Information 38 yo male admitted on a 302 with decompensation of schizophrenia in the setting of medication noncompliance. Pt was admitted involuntarily on 11/07/18 13:50, 303 was granted on 11/11/18. Review of Systems Sleep Information Total Hours of Sleep: 7.5 Sleep Comments: pt on q-15 minute checks Meal Information Percent Meal Consumed - Breakfast: 100 Percent Meal Consumed - Lunch: 100 Percent Meal Consumed - Dinner: 100 Subjective Subjective Patient reports his mood is good and that he feels "I'm not anxious and calm" after taking the celexa. Patient states he has a few dogs at home and misses them. He showed me a picture of his goat he used to have and described events related to this. He states that he will go home and go back to helping out there. He was asked to repeat his medications, which he was able to and stated he would continue to take them. He denies SI/HI/aVH. He stated he appreciates the care he received. Patient was seen & assessed and interval progress reviewed with Treatment Team and Nursing Physical Exam Psychiatric A+Ox3, euthymic affect Apperance: appropriately dressed and appropriately groomed Eye Contact: good eye contact Motor Behavior: no abnormal motor movements Speech: normal rate/rhythm/volume of speech Affect: euthymic affect and mood congruent with affect Thought Process: linear/logical thought process Thought Content: not paranoid and no delusions Suicidal Thoughts: denies suicidal thoughts Homicidal Thoughts: denies homicidal thoughts Hallucinations: no auditory hallucinations and no visual hallucinations Cognition: recent memory grossly intact and remote memory grossly intact Estimated Intelligence: + below average estimated intelligence Insight: + fair insight Judgement: + fair judgement Vital Signs (Past 24 Hours) Last Vital Signs Temp 36.5 C 11/19/18 07:01 Pulse 96 H 11/19/18 07:02 Resp 16 11/19/18 07:01 BP 118/85 11/19/18 07:02 Results & Data Laboratory Results Laboratory Results - last 24 hr 11/19/18 06:59 Valproic Acid 69 Current Inpatient Medications Current Inpatient Medications: Current Inpatient Medications Al Hydrox/Mg Hydrox/Simethicone (Maalox) 30 ml PO Q4H PRN PRN Reason: GI Upset Stop: 12/07/18 06:24 A[facility]odip[facility] Stop: 12/07/18 15:44 Last Admin: 11/19/18 07:52 Dose: 5 mg Atorvastatin Calcium (Lipitor) 10 mg PO QAM [facility] Stop: 12/08/18 08:59 Last Admin: 11/19/18 07:52 Dose: 10 mg Bismuth Subsalicylate (Kaopectate) 15 ml PO PRN PRN PRN Reason: Loose Stool Stop: 12/07/18 06:24 Citalopram [facility]bromide (Celexa) [facility] Stop: 12/18/18 14:29 Last Admin: 11/19/18 07:48 Dose: 10 mg Divalproex Sodium (Depakote Extended Release) 500 mg PO QAM [facility] Stop: 12/11/18 10:14 Last Admin: 11/19/18 08:35 Dose: 500 mg Divalproex Sodium (Depakote Extended Release) 1,000 mg PO [facility] Stop: 12/11/18 21:59 Last Admin: 11/18/18 21:19 Dose: 1,000 mg Fluticasone Propionate (Flonase) 1 sprays NA DAILY [facility] Stop: 12/12/18 09:59 Last Admin: 11/19/18 07:47 Dose: 1 sprays Haloperidol (Haldol) 5 mg PO Q4H PRN PRN Reason: psychosis Stop: 12/10/18 08:45 Last Admin: 11/15/18 13:44 Dose: 5 mg Haloperidol (Haldol) 5 mg PO BID [facility] Stop: 12/14/18 11:29 Last Admin: 11/19/18 07:51 Dose: 5 mg Hydroxyzine HCl (Vistaril) 50 mg PO HSZ PRN PRN Reason: Insomnia Stop: 12/07/18 06:24 Hydroxyzine HCl (Vistaril) 25 mg PO Q4H PRN PRN Reason: Anxiety Stop: 12/07/18 06:24 Last Admin: 11/11/18 12:56 Dose: 25 mg Loratadine (Claritin) 10 mg PO QAM [facility] Stop: 12/08/18 08:59 Last Admin: 11/19/18 07:54 Dose: 10 mg Magnesium Hydroxide (Milk Of Magnesia) 30 ml PO DAILY PRN PRN Reason: Heartburn Stop: 12/07/18 06:24 Pantoprazole Sodium (Protonix) 40 mg PO QAM [facility] Stop: 12/08/18 08:59 Last Admin: 11/19/18 07:52 Dose: 40 mg Sodium Chloride ([place] Nasal) 1 - 2 sprays NA PRN PRN PRN Reason: Nasal Dryness/Congestion Stop: 12/07/18 06:24 Post Discharge Appointments Primary Care Physician Name Of Family Doctor: [facility] - Dr Rodrick Antonio Primary Care Date of Appointment with PCP: 11/25/18 Time of Appointment with PCP: 9am Provider Appointment Comment: [address], [place] [address] Psychiatrist Name of Psychiatrist: [facility] - to be set after intake completed Psychiatrist's Time of Appointment with Psychiatrist: Walk-ins: , Sun, and between 8- 3pm Psychiatric Appointment Comment: [address], [place] [address] Therapist Name of Therapist: [facility] - STEP uptwister tender 7:30-8am Therapist's Date of Therapist Appointment: 11/22/18 Time of Therapist Appointment: 9am Therapy Appointment Comment: [address], [place] [address] Lamination Builder Name of Lamination Builder: [facility] Phone Number for Lamination Builder: [phone] Date of Appointment with Lamination Builder: 11/21/18 Time of Appointment with Lamination Builder: 10am Case Management Appointment Comment: [address] [place] [address] Partial or Psych Rehab Name of Partial or Psych Rehab: [facility] Phone Number of Partial or Psych Rehab: [phone] Partial or Psych Rehab Appointment Comment: [address] [place] [address] Mattress Filling Machine Tender Name of Mattress Filling Machine Tender: [facility] Phone Number of Mattress Filling Machine Tender: [phone] Mattress Filling Machine Tender Appointment Comment: [address] [place], [place] [address] [address] Contact Information Discharge Discharge Address: [address] [place], [place] [address]Tavia [place] [facility] CPT Code CPT Code 25860 _ (1) Schizophrenia Schizophrenia type: paranoid schizophrenia Qualified Code(s): F20.0 - Paranoid schizophrenia (2) Hypertension Hypertension type: unspecified Qualified Code(s): I10 - Essential (primary) hypertension (3) Hyperlipidemia Hyperlipidemia type: unspecified Qualified Code(s): E78.5 - Hyperlipidemia, unspecified
[2018-11-20] MEDS: FLUTICASONE PROPIONATE NA SPR 16 GM BTL SCH (07:19)
[2018-11-20] MEDS: CITALOPRAM 20 MG TAB PO SCH (07:20)
[2018-11-20] MEDS: LORATADINE 10 MG TAB PO SCH (07:21)
[2018-11-20] MEDS: DIVALPROEX EXTENDED RELEASE 500 MG TAB PO SCH ×2 (07:21→21:11)
[2018-11-20] MEDS: AMLODIPINE BESYLATE 5 MG TAB PO SCH (07:22)
[2018-11-20] MEDS: ATORVASTATIN 10 MG TAB PO SCH (07:22)
[2018-11-20] MEDS: PANTOprazole 40 MG TAB PO SCH (07:22)
[2018-11-20] MEDS: HALOPERIDOL 5 MG TAB PO SCH ×2 (07:24→21:12)
--- NOTE | 2018-11-20 09:50 | Psychiatric Progress Note ---
Date of Service November 20, 2018 Impression / Recommendations Impression 38 yo CM with h/o schizophrenia who was admitted for acute decompensation. Patient started on invega WHITMAN and received second dose today. Also depakote was started and patient seems to be improved since admission. Seems that 11/15 familiy meeting with mother was somewhat erratic but since then patient has been with improved insight and mood stability. He has been compliant with meds and cooperative. Discharge planning with follow ups and collateral pending, as mother refuses to let patient return to her home, alternative housing options are being obtained. Patient would need safe disposition prior to discharge. (1) Schizophrenia: 11/07/18: - Invega 3mg PO qhs (zyprexa 5mg qhs prn as IM override if refusing PO) 11/08/18: Patient refusing and non-compliant with meds outpatient. Will change risperdal to Invega with plan for WHITMAN sustenna today. Patient has been on Invega before, was improved and tolerated medication per collateral obtained. Will obtain second physician opinion for IM override today. Lipid panel was within normal limits. 303 paperwork filled out, likely court hearing on Sunday. - Increase Depakote ER to 1000mg qhs for mood 11/09 -continue current medications; received Invega Sustenna 234 mg IM today. -Continue Depakote for mood stabilization -patient is hyperverbal, pressured, irritable at times. -303 hearing scheduled for Sunday. We will need family meeting with mother once appropriate. -Continue private room until symptoms are better controlled and he can tolerate a roommate. 11/10 -haloperidol 5 mg every 6 hours as needed for psychosis. -Patient signed a release for his mother, will need to schedule a family meeting once he is less psychotic and able to tolerate it. 11/11: 303 hearing resulted in 20 days, patient has been cooperative and taking medications. Next Invega sustenna dose of 156mg due on 11/16/18. VPA level today was 28 and will increase Depakote ER to 500mg qam and 1000mg qhs. Continue prn haldol. 11/12: Patient seems to be with some improvement in mood and paranoia today. Was redirectable and did not perseverate on the neighbors like yesterday. Did report about his mother and that she is his mother. Nursing reports patient remains erratic and has periods of calm. Continue to treat for stabilization. 11/13: continues to be calm and able to have a conversation and answer questions today. Decreased paranoia, but circumstantial and tangential at times. Denies SI /Hi/aVH. Family meeting with mother on Tuesday 11/14 - Add Haldol 5 mg BID - Continue other meds with next Sustenna injection due on 11/16 - Continue efforts to destimulate 11/15 - Continue current medication regimen - Second loading injection for Sustenna scheduled for 11/16 - Family meeting scheduled for this afternoon with his mother 11/16 -Continue treatment for stabilization -Second loading invega given today 11/17 -Continue current medications -No side effects from invega noted -discharge planning 11/18 -Continue current regimen -work on coping mechanisms -discharge planning 11/19 -Continue current regimen -Discharge planning 11/20 -Continue current regimen -Discharge planning (2) Hypertension: - Amlodipine 5mg daily (home med) (3) Hyperlipidemia: - Atovastatin 10mg daily (home med) Inventory Assets Strengths: future oriented, access to care Needs: medications and therapy Risk Factors Assessment Male: Yes : Yes Do You Have Access To A Gun?: No Mental Health Diagnoses: Yes Substance Use Disorders: No Hopelessness: No Protective Factors Assessment Responsible for Young Children: No Employed: No Interval History Identifying Information 38 yo male admitted on a 302 with decompensation of schizophrenia in the setting of medication noncompliance. Pt was admitted involuntarily on 11/07/18 13:50, 303 was granted on 11/11/18. Review of Systems Sleep Information Total Hours of Sleep: 5.25 Sleep Comments: out to the kitchen for a drink at 0205 then back to bed/sleep. Meal Information Percent Meal Consumed - Breakfast: 100 Percent Meal Consumed - Lunch: 100 Percent Meal Consumed - Dinner: 100 Subjective Subjective Patient reports that he is feeling "fine". Spoke about mother not letting him back and states "I have no choice, but maybe it's better for me". He states he wants to make sure he gets his SSI transferred directly to him and not his mother. He reports a friend agreed to let him live with him and provided contact to . He denies SI/HI/aVH. Patient was seen & assessed and interval progress reviewed with [Treatment Team ] [Nursing] Physical Exam Psychiatric A+Ox3, euthymic affect Apperance: appropriately dressed and appropriately groomed Eye Contact: + fair eye contact Motor Behavior: no abnormal motor movements Speech: normal rate/rhythm/volume of speech Affect: euthymic affect and mood congruent with affect Thought Process: linear/logical thought process Thought Content: not paranoid and no delusions Suicidal Thoughts: denies suicidal thoughts Homicidal Thoughts: denies homicidal thoughts Hallucinations: no auditory hallucinations and no visual hallucinations Cognition: recent memory grossly intact and remote memory grossly intact Estimated Intelligence: + below average estimated intelligence Insight: + fair insight Judgement: + fair judgement Vital Signs (Past 24 Hours) Last Vital Signs Temp 36.6 C 11/20/18 07:02 Pulse 84 11/20/18 07:03 Resp 16 11/20/18 07:02 BP 130/92 11/20/18 07:03 Results & Data Current Inpatient Medications Current Inpatient Medications: Current Inpatient Medications Al Hydrox/Mg Hydrox/Simethicone (Maalox) 30 ml PO Q4H PRN PRN Reason: GI Upset Stop: 12/07/18 06:24 Amlodipine Besylate (Norvasc) 5 mg PO QAM [facility] Stop: 12/07/18 15:44 Last Admin: 11/20/18 07:22 Dose: 5 mg Atorvastatin Calcium (Lipitor) 10 mg PO QAM [facility] Stop: 12/08/18 08:59 Last Admin: 11/20/18 07:22 Dose: 10 mg Bismuth Subsalicylate (Kaopectate) 15 ml PO PRN PRN PRN Reason: Loose Stool Stop: 12/07/18 06:24 Citalopram Hydrobromide (Celexa) 10 mg PO QAM [facility] Stop: 12/18/18 14:29 Last Admin: 11/20/18 07:20 Dose: 10 mg Divalproex Sodium (Depakote Extended Release) 500 mg PO QAM [facility] Stop: 12/11/18 10:14 Last Admin: 11/20/18 07:21 Dose: 500 mg Divalproex Sodium (Depakote Extended Release) 1,000 mg PO HS [facility] Stop: 12/11/18 21:59 Last Admin: 11/19/18 21:12 Dose: 1,000 mg Fluticasone Propionate (Flonase) 1 sprays NA DAILY [facility] Stop: 12/12/18 09:59 Last Admin: 11/20/18 07:19 Dose: 1 sprays Haloperidol (Haldol) 5 mg PO Q4H PRN PRN Reason: psychosis Stop: 12/10/18 08:45 Last Admin: 11/15/18 13:44 Dose: 5 mg Haloperidol (Haldol) 5 mg PO BID [facility] Stop: 12/14/18 11:29 Last Admin: 11/20/18 07:24 Dose: 5 mg Hydroxyzine HCl (Vistaril) 50 mg PO HSZ PRN PRN Reason: Insomnia Stop: 12/07/18 06:24 Hydroxyzine HCl (Vistaril) 25 mg PO Q4H PRN PRN Reason: Anxiety Stop: 12/07/18 06:24 Last Admin: 11/11/18 12:56 Dose: 25 mg Loratadine (Claritin) 10 mg PO QAM [facility] Stop: 12/08/18 08:59 Last Admin: 11/20/18 07:21 Dose: 10 mg Magnesium Hydroxide (Milk Of Magnesia) 30 ml PO DAILY PRN PRN Reason: Heartburn Stop: 12/07/18 06:24 Pantoprazole Sodium (Protonix) 40 mg PO QAM [facility] Stop: 12/08/18 08:59 Last Admin: 11/20/18 07:22 Dose: 40 mg Sodium Chloride ([place] Nasal) 1 - 2 sprays NA PRN PRN PRN Reason: Nasal Dryness/Congestion Stop: 12/07/18 06:24 Post Discharge Appointments Primary Care Physician Name Of Family Doctor: [facility] - Dr Rodrick Antonio Primary Care Date of Appointment with PCP: 11/25/18 Time of Appointment with PCP: 9am Provider Appointment Comment: [address], [place] [address] Psychiatrist Name of Psychiatrist: [facility] - to be set after intake completed Psychiatrist's Time of Appointment with Psychiatrist: Walk-ins: , Sun, and between 8- 3pm Psychiatric Appointment Comment: [address], [place] [address] Therapist Name of Therapist: [facility] - STEP zone supervisor firearms 7:30-8am Therapist's Date of Therapist Appointment: 11/22/18 Time of Therapist Appointment: 9am Therapy Appointment Comment: [address], [place] [address], [place] [address] Tip Finisher [facility] Tip [facility] Phone Number for Tip Finisher: [phone] Date of Appointment with Tip Finisher: 11/21/18 Time of Appointment with Tip Finisher: 10am Case Management Appointment Comment: [address] [place] [address] [place] [address] Partial or Psych Rehab Name of Partial or Psych Rehab: [facility] Phone Number of Partial or Psych Rehab: [phone] Partial or Psych Rehab Appointment Comment: [address] [place], [place] [address] [address] Athlete Marketing Agent Name of Athlete Marketing Agent: [facility] Phone Number of Athlete Marketing Agent: [phone] Athlete Marketing Agent Appointment Comment: [address] [place], [place] [address] [address] Contact Information Discharge Discharge Address: [address] [place], [place] [address]Tavia [place] [facility] CPT Code CPT Code 75536 _ (1) Schizophrenia Schizophrenia type: paranoid schizophrenia Qualified Code(s): F20.0 - Paranoid schizophrenia (2) Hypertension Hypertension type: unspecified Qualified Code(s): I10 - Essential (primary) hypertension (3) Hyperlipidemia Hyperlipidemia type: unspecified Qualified Code(s): E78.5 - Hyperlipidemia, unspecified
[2018-11-21] MEDS: CITALOPRAM 20 MG TAB PO SCH (07:53)
[2018-11-21] MEDS: DIVALPROEX EXTENDED RELEASE 500 MG TAB PO SCH ×2 (07:54→21:12)
[2018-11-21] MEDS: LORATADINE 10 MG TAB PO SCH (07:54)
[2018-11-21] MEDS: FLUTICASONE PROPIONATE NA SPR 16 GM BTL SCH (07:55)
[2018-11-21] MEDS: HALOPERIDOL 5 MG TAB PO SCH ×2 (07:56→21:12)
[2018-11-21] MEDS: ATORVASTATIN 10 MG TAB PO SCH (07:56)
[2018-11-21] MEDS: AMLODIPINE BESYLATE 5 MG TAB PO SCH (07:56)
[2018-11-21] MEDS: PANTOprazole 40 MG TAB PO SCH (07:57)
--- NOTE | 2018-11-21 11:00 | Psychiatric Progress Note ---
Date of Service November 21, 2018 Impression / Recommendations Impression 38 yo CM with h/o schizophrenia who was admitted for acute decompensation. Patient started on invega WHITMAN and received second dose today. Also depakote was started and patient seems to be improved since admission. Seems that 11/15 familiy meeting with mother was somewhat erratic but since then patient has been with improved insight and mood stability. He has been compliant with meds and cooperative. Discharge planning with follow ups and collateral pending, as mother refuses to let patient return to her home, alternative housing options are being obtained. Patient would need safe disposition prior to discharge. (1) Schizophrenia: 11/07/18: - Invega 3mg PO qhs (zyprexa 5mg qhs prn as IM override if refusing PO) 11/08/18: Patient refusing and non-compliant with meds outpatient. Will change risperdal to Invega with plan for WHITMAN sustenna today. Patient has been on Invega before, was improved and tolerated medication per collateral obtained. Will obtain second physician opinion for IM override today. Lipid panel was within normal limits. 303 paperwork filled out, likely court hearing on Sunday. - Increase Depakote ER to 1000mg qhs for mood 11/09 -continue current medications; received Invega Sustenna 234 mg IM today. -Continue Depakote for mood stabilization -patient is hyperverbal, pressured, irritable at times. -303 hearing scheduled for Sunday. We will need family meeting with mother once appropriate. -Continue private room until symptoms are better controlled and he can tolerate a roommate. 11/10 -haloperidol 5 mg every 6 hours as needed for psychosis. -Patient signed a release for his mother, will need to schedule a family meeting once he is less psychotic and able to tolerate it. 11/11: 303 hearing resulted in 20 days, patient has been cooperative and taking medications. Next Invega sustenna dose of 156mg due on 11/16/18. VPA level today was 28 and will increase Depakote ER to 500mg qam and 1000mg qhs. Continue prn haldol. 11/12: Patient seems to be with some improvement in mood and paranoia today. Was redirectable and did not perseverate on the neighbors like yesterday. Did report about his mother and that she is his mother. Nursing reports patient remains erratic and has periods of calm. Continue to treat for stabilization. 11/13: continues to be calm and able to have a conversation and answer questions today. Decreased paranoia, but circumstantial and tangential at times. Denies SI /Hi/aVH. Family meeting with mother on Tuesday 11/14 - Add Haldol 5 mg BID - Continue other meds with next Sustenna injection due on 11/16 - Continue efforts to destimulate 11/15 - Continue current medication regimen - Second loading injection for Sustenna scheduled for 11/16 - Family meeting scheduled for this afternoon with his mother 11/16 -Continue treatment for stabilization -Second loading invega given today 11/17 -Continue current medications -No side effects from invega noted -discharge planning 11/18 -Continue current regimen -work on coping mechanisms -discharge planning 11/19 -Continue current regimen -Discharge planning 11/20 -Continue current regimen -Discharge planning 11/21 -Continue current regimen -Discharge planning -Next Invega 117mg due on 12/17/18 -Continue Depakote ER 500mg qam and 1000mg qhs -Continue Haldol 5mg bid -Continue Celexa 10mg daily (2) Hypertension: - Amlodipine 5mg daily (home med) (3) Hyperlipidemia: - Atovastatin 10mg daily (home med) Inventory Assets Strengths: future oriented, access to care Needs: medications and therapy Risk Factors Assessment Male: Yes : Yes Do You Have Access To A Gun?: No Mental Health Diagnoses: Yes Substance Use Disorders: No Hopelessness: No Protective Factors Assessment Responsible for Young Children: No Employed: No Interval History Identifying Information 38 yo male admitted on a 302 with decompensation of schizophrenia in the setting of medication noncompliance. Pt was admitted involuntarily on 11/07/18 13:50, 303 was granted on 11/11/18. Review of Systems Sleep Information Total Hours of Sleep: 7.25 Sleep Comments: awake around 0530-wanted coffee to drink. back to bed and sleep when noted the time to him was oo early for morning coffee. Meal Information Percent Meal Consumed - Breakfast: 100 Percent Meal Consumed - Lunch: 100 Percent Meal Consumed - Dinner: 100 Subjective Subjective Patient states "I'm ok" today and reports he is fine with going to the housing facility that the and leather case finisher have been working on. Patient states his mood is fine and denies any SI/Hi/aVH. He states he is appreciative of the care he has received. Patient was seen & assessed and interval progress reviewed with nursing Physical Exam Psychiatric A+Ox3, euthymic affect Apperance: appropriately dressed and appropriately groomed Eye Contact: + fair eye contact Motor Behavior: no abnormal motor movements Speech: normal rate/rhythm/volume of speech Affect: euthymic affect and mood congruent with affect Thought Process: goal directed thought process Thought Content: not paranoid and no delusions Suicidal Thoughts: denies suicidal thoughts Homicidal Thoughts: denies homicidal thoughts Hallucinations: no auditory hallucinations and no visual hallucinations Cognition: attention grossly intact Estimated Intelligence: + below average estimated intelligence Insight: + fair insight Judgement: + fair judgement Vital Signs (Past 24 Hours) Last Vital Signs Temp 36.7 C 11/21/18 06:48 Pulse 92 H 11/21/18 06:48 Resp 18 11/21/18 06:48 BP 125/80 11/21/18 06:48 Results & Data Current Inpatient Medications Current Inpatient Medications: Current Inpatient Medications Al Hydrox/Mg Hydrox/Simethicone (Maalox) 30 ml PO Q4H PRN PRN Reason: GI Upset Stop: 12/07/18 06:24 Amlodipine Besylate (Norvasc) 5 mg PO QAM [facility] Stop: 12/07/18 15:44 Last Admin: 11/21/18 07:56 Dose: 5 mg Atorvastatin Calcium (Lipitor) 10 mg PO QAM [facility] Stop: 12/08/18 08:59 Last Admin: 11/21/18 07:56 Dose: 10 mg Bismuth Subsalicylate (Kaopectate) 15 ml PO PRN PRN PRN Reason: Loose Stool Stop: 12/07/18 06:24 Citalopram Hydrobromide (Celexa) 10 mg PO QAM [facility] Stop: 12/18/18 14:29 Last Admin: 11/21/18 07:53 Dose: 10 mg Divalproex Sodium (Depakote Extended Release) 500 mg PO QAM [facility] Stop: 12/11/18 10:14 Last Admin: 11/21/18 07:54 Dose: 500 mg Divalproex Sodium (Depakote Extended Release) 1,000 mg PO HS [facility] Stop: 12/11/18 21:59 Last Admin: 11/20/18 21:11 Dose: 1,000 mg Fluticasone Propionate (Flonase) 1 sprays NA DAILY [facility] Stop: 12/12/18 09:59 Last Admin: 11/21/18 07:55 Dose: 1 sprays Haloperidol (Haldol) 5 mg PO Q4H PRN PRN Reason: psychosis Stop: 12/10/18 08:45 Last Admin: 11/15/18 13:44 Dose: 5 mg Haloperidol (Haldol) 5 mg PO BID [facility] Stop: 12/14/18 11:29 Last Admin: 11/21/18 07:56 Dose: 5 mg Hydroxyzine HCl (Vistaril) 50 mg PO HSZ PRN PRN Reason: Insomnia Stop: 12/07/18 06:24 Hydroxyzine HCl (Vistaril) 25 mg PO Q4H PRN PRN Reason: Anxiety Stop: 12/07/18 06:24 Last Admin: 11/11/18 12:56 Dose: 25 mg Loratadine (Claritin) 10 mg PO QAM [facility] Stop: 12/08/18 08:59 Last Admin: 11/21/18 07:54 Dose: 10 mg Magnesium Hydroxide (Milk Of Magnesia) 30 ml PO DAILY PRN PRN Reason: Heartburn Stop: 12/07/18 06:24 Pantoprazole Sodium (Protonix) 40 mg PO QAM [facility] Stop: 12/08/18 08:59 Last Admin: 11/21/18 07:57 Dose: 40 mg Sodium Chloride (Aromas Nasal) 1 - 2 sprays NA PRN PRN PRN Reason: Nasal Dryness/Congestion Stop: 12/07/18 06:24 Post Discharge Appointments Primary Care Physician Name Of Family Doctor: [facility] - Dr Rodrick Antonio Primary Care Date of Appointment with PCP: 11/25/18 Time of Appointment with PCP: 9am Provider Appointment Comment: [address], [place] [address] Psychiatrist Name of Psychiatrist: [facility] - to be set after intake completed Psychiatrist's Time of Appointment with Psychiatrist: Walk-ins: , Sun, and between 8- 3pm Psychiatric Appointment Comment: [address], [address], [place] [address] Therapist Name of Therapist: [facility] - STEP assembly line supervisor 7:30-8am Therapist's Date of Therapist Appointment: 11/22/18 Time of Therapist Appointment: 9am Therapy Appointment Comment: [address], [place] [id number], [place] [address]pre[address] Name of Official Court Interpreter: [facility] Phone Number for Official Court Interpreter: [phone] Date of Appointment with Official Court Interpreter: 11/21/18 Time of Appointment with Official Court Interpreter: 10am Case Management Appointment Comment: [address] [facility] [place] Partial or Psych Rehab Name of Partial or Psych Rehab: [facility] Phone Number of Partial or Psych Rehab: [phone] Partial or Psych Rehab Appointment Comment: [address] [place], [place] [address] [address] Cryogenics Engineer Name of Cryogenics Engineer: [facility] Phone Number of Cryogenics Engineer: [phone] Cryogenics Engineer Appointment Comment: [address] [place], [place] [address] [address] Contact Information Discharge Discharge Address: [address] [place] [address] [place] [facility] CPT Code CPT Code 35073 _ (1) Schizophrenia Schizophrenia type: paranoid schizophrenia Qualified Code(s): F20.0 - Paranoid schizophrenia (2) Hypertension Hypertension type: unspecified Qualified Code(s): I10 - Essential (primary) hypertension (3) Hyperlipidemia Hyperlipidemia type: unspecified Qualified Code(s): E78.5 - Hyperlipidemia, unspecified
[2018-11-22] MEDS: FLUTICASONE PROPIONATE NA SPR 16 GM BTL SCH (07:37)
[2018-11-22] MEDS: CITALOPRAM 20 MG TAB PO SCH (07:37)
[2018-11-22] MEDS: HALOPERIDOL 5 MG TAB PO SCH ×2 (07:38→22:09)
[2018-11-22] MEDS: ATORVASTATIN 10 MG TAB PO SCH (07:38)
[2018-11-22] MEDS: PANTOprazole 40 MG TAB PO SCH (07:38)
[2018-11-22] MEDS: DIVALPROEX EXTENDED RELEASE 500 MG TAB PO SCH ×2 (07:38→22:09)
[2018-11-22] MEDS: AMLODIPINE BESYLATE 5 MG TAB PO SCH (07:39)
[2018-11-22] MEDS: LORATADINE 10 MG TAB PO SCH (07:42)
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
[2018-11-23] MEDS: CITALOPRAM 20 MG TAB PO SCH (07:50)
[2018-11-23] MEDS: FLUTICASONE PROPIONATE NA SPR 16 GM BTL SCH (07:51)
[2018-11-23] MEDS: ATORVASTATIN 10 MG TAB PO SCH (07:51)
[2018-11-23] MEDS: LORATADINE 10 MG TAB PO SCH (07:51)
[2018-11-23] MEDS: HALOPERIDOL 5 MG TAB PO SCH ×2 (07:51→21:00)
[2018-11-23] MEDS: DIVALPROEX EXTENDED RELEASE 500 MG TAB PO SCH ×2 (07:51→21:00)
[2018-11-23] MEDS: PANTOprazole 40 MG TAB PO SCH (07:52)
[2018-11-23] MEDS: AMLODIPINE BESYLATE 5 MG TAB PO SCH (07:52)
--- NOTE | 2018-11-23 11:08 | Psychiatric Progress Note ---
Date of Service November 23, 2018 Impression / Recommendations Impression 38 yo CM with h/o schizophrenia who was admitted for acute decompensation. Planning to continue monthly dosing of Invega Sustenna. Pt remains compliant with PO Depakote as well. Pt has shown improvement with current medication regimen; however, was not permitted to return home with his mother. Plan at this time is for transfer to a personal pen[facility], and he has been accepted. Will need to continue to coordinate arrangements. Despite improvement, patient is at high risk of decompensation if her were to be discharged prematurely and without adequate safe housing options. (1) Schizophrenia: 11/07/18: - Invega 3mg PO qhs (zyprexa 5mg qhs prn as IM override if refusing PO) 11/08/18: Patient refusing and non-compliant with meds outpatient. Will change risperdal to Invega with plan for WHITMAN sustenna today. Patient has been on Invega before, was improved and tolerated medication per collateral obtained. Will obtain second physician opinion for IM override today. Lipid panel was within normal limits. 303 paperwork filled out, likely court hearing on Sunday. - Increase Depakote ER to 1000mg qhs for mood 11/09 -continue current medications; received Invega Sustenna 234 mg IM today. -Continue Depakote for mood stabilization -patient is hyperverbal, pressured, irritable at times. -303 hearing scheduled for Sunday. We will need family meeting with mother once appropriate. -Continue private room until symptoms are better controlled and he can tolerate a roommate. 11/10 -haloperidol 5 mg every 6 hours as needed for psychosis. -Patient signed a release for his mother, will need to schedule a family meeting once he is less psychotic and able to tolerate it. 11/11: 303 hearing resulted in 20 days, patient has been cooperative and taking medications. Next Invega sustenna dose of 156mg due on 11/16/18. VPA level today was 28 and will increase Depakote ER to 500mg qam and 1000mg qhs. Continue prn haldol. 11/12: Patient seems to be with some improvement in mood and paranoia today. Was redirectable and did not perseverate on the neighbors like yesterday. Did report about his mother and that she is his mother. Nursing reports patient remains erratic and has periods of calm. Continue to treat for stabilization. 11/13: continues to be calm and able to have a conversation and answer questions today. Decreased paranoia, but circumstantial and tangential at times. Denies SI /Hi/aVH. Family meeting with mother on Tuesday 11/14 - Add Haldol 5 mg BID - Continue other meds with next Sustenna injection due on 11/16 - Continue efforts to destimulate 11/15 - Continue current medication regimen - Second loading injection for Sustenna scheduled for 11/16 - Family meeting scheduled for this afternoon with his mother 11/16 -Continue treatment for stabilization -Second loading invega given today 11/17 -Continue current medications -No side effects from invega noted -discharge planning 11/18 -Continue current regimen -work on coping mechanisms -discharge planning 11/19 -Continue current regimen -Discharge planning 11/20 -Continue current regimen -Discharge planning 11/21 -Continue current regimen -Discharge planning -Next Invega 117mg due on 12/17/18 -Continue Depakote ER 500mg qam and 1000mg qhs -Continue Haldol 5mg bid -Continue Celexa 10mg daily 11/22 - Continue current medication regimen - hydroxyzine prn for sleep - Plan is for transfer to a personal penitentiary at discharge, continue to coordinate 11/23 - Continue current medication regimen - Plan is for transfer to a personal penitentiary at discharge, pending acceptance (2) Hypertension: - Amlodipine 5mg daily (home med) (3) Hyperlipidemia: - Atovastatin 10mg daily (home med) Inventory Assets Strengths: future oriented, access to care Needs: medications and therapy Risk Factors Assessment Male: Yes : Yes Do You Have Access To A Gun?: No Mental Health Diagnoses: Yes Substance Use Disorders: No Hopelessness: No Protective Factors Assessment Responsible for Young Children: No Employed: No Interval History Identifying Information 38 yo male admitted on a 302 with decompensation of schizophrenia in the setting of medication noncompliance. Pt was admitted involuntarily on 11/07/18 13:50, 303 was granted on 11/11/18. Chief Complaint "[]". Review of Systems Sleep Information Total Hours of Sleep: 7.25 Sleep Comments: pt on q-15 minute checks Meal Information Percent Meal Consumed - Breakfast: 100 Percent Meal Consumed - Lunch: 100 Percent Meal Consumed - Dinner: 100 Subjective Subjective Patient states he is feeling fine and has no complaints. Reported he had a conversation with his mother and "it went ok" and states she told him if he gets better he can come home at a later time. Discussed going to living facility as best option at this time and patietn agreed. Denies SI/HI/aVH or paranoid thoughts Patient was seen & assessed and interval progress reviewed with Nursing Physical Exam Psychiatric A+Ox3, euthymic affect Apperance: appropriately dressed and appropriately groomed Eye Contact: + fair eye contact Motor Behavior: no abnormal motor movements Speech: normal rate/rhythm/volume of speech Affect: euthymic affect and mood congruent with affect Thought Process: goal directed thought process Thought Content: reality based without delusions; not paranoid Suicidal Thoughts: denies suicidal thoughts Homicidal Thoughts: denies homicidal thoughts Hallucinations: no auditory hallucinations and no visual hallucinations Cognition: recent memory grossly intact and remote memory grossly intact Estimated Intelligence: + below average estimated intelligence Insight: + fair insight Judgement: + fair judgement Vital Signs (Past 24 Hours) Last Vital Signs Temp 36.5 C 11/23/18 06:54 Pulse 88 11/23/18 06:54 Resp 16 11/23/18 06:54 BP 136/95 11/23/18 06:54 Results & Data Current Inpatient Medications Current Inpatient Medications: Current Inpatient Medications Al Hydrox/Mg Hydrox/Simethicone (Maalox) 30 ml PO Q4H PRN PRN Reason: GI Upset Stop: 12/07/18 06:24 Amlodipine Besylate (Norvasc) [facility] [place] Stop: 12/07/18 15:44 Last Admin: 11/23/18 07:52 Dose: 5 mg Atorvastatin Calcium (Lipitor) 10 mg PO QAM [facility] Stop: 12/08/18 08:59 Last Admin: 11/23/18 07:51 Dose: 10 mg Bismuth Subsalicylate (Kaopectate) 15 ml PO PRN PRN PRN Reason: Loose Stool Stop: 12/07/18 06:24 Citalopram Hydrobromide (Celexa) 10 [facility] [place] Stop: 12/18/18 14:29 Last Admin: 11/23/18 07:50 Dose: 10 mg Divalproex Sodium (Depakote Extended Release) 500 mg PO QAM [facility] Stop: 12/11/18 10:14 Last Admin: 11/23/18 07:51 Dose: 500 mg Divalproex Sodium (Depakote Extended Release) 1,000 mg PO HS [facility] Stop: 12/11/18 21:59 Last Admin: 11/22/18 22:09 Dose: 1,000 mg Fluticasone Propionate (Flonase) 1 sprays NA DAILY [facility] Stop: 12/12/18 09:59 Last Admin: 11/23/18 07:51 Dose: 1 sprays Haloperidol (Haldol) 5 mg PO Q4H PRN PRN Reason: psychosis Stop: 12/10/18 08:45 Last Admin: 11/15/18 13:44 Dose: 5 mg Haloperidol (Haldol) 5 mg PO BID [facility] Stop: 12/14/18 11:29 Last Admin: 11/23/18 07:51 Dose: 5 mg Hydroxyzine HCl (Vistaril) 50 mg PO HSZ PRN PRN Reason: Insomnia Stop: 12/07/18 06:24 Last Admin: 11/21/18 21:12 Dose: 50 mg Hydroxyzine HCl (Vistaril) 25 mg PO Q4H PRN PRN Reason: Anxiety Stop: 12/07/18 06:24 Last Admin: 11/11/18 12:56 Dose: 25 mg Loratadine (Claritin) 10 mg PO QAM [facility] Stop: 12/08/18 08:59 Last Admin: 11/23/18 07:51 Dose: 10 mg Magnesium Hydroxide (Milk Of Magnesia) 30 ml PO DAILY PRN PRN Reason: Heartburn Stop: 12/07/18 06:24 Pantoprazole Sodium (Protonix) 40 mg PO QAM [facility] Stop: 12/08/18 08:59 Last Admin: 11/23/18 07:52 Dose: 40 mg Sodium Chloride ([place] Nasal) 1 - 2 sprays NA PRN PRN PRN Reason: Nasal Dryness/Congestion Stop: 12/07/18 06:24 Post Discharge Appointments Primary Care Physician Name Of Family Doctor: [facility] Claudia Antonio Primary Care Date of Appointment with PCP: 11/25/18 Time of Appointment with PCP: 9am Provider Appointment Comment: [address], [place] [address] Psychiatrist Name of Psychiatrist: [facility] - to be set after intake completed Psychiatrist's Time of Appointment with Psychiatrist: Walk-ins: Tu, Sun, and between 8- 3pm Psychiatric Appointment Comment: [address], [address], [place] [address] Therapist Name of Therapist: [facility] - STEP pressing department supervisor 7:30-8am Therapist's Date of Therapist Appointment: 11/22/18 Time of Therapist Appointment: 9am Therapy Appointment Comment: [address], [address], [place] [address] Retail Warehouse Supervisor Name of Retail Warehouse Supervisor: [facility] Phone Number for Retail Warehouse Supervisor: [phone] Date of Appointment with Retail Warehouse Supervisor: 11/21/18 Time of Appointment with Retail Warehouse Supervisor: 10am Case Management Appointment Comment: [address] [place], [place] [address] [address] Partial or Psych Rehab Name of Partial or Psych Rehab: [facility] Phone Number of Partial or Psych Rehab: [phone] Partial or Psych Rehab Appointment Comment: [address] [place], [place] [address] [address] Photo Retoucher Name of Photo Retoucher: [facility] Phone Number of Photo Retoucher: [phone] Photo Retoucher Appointment Comment: [address] [place], [place] [address] [address] Contact Information Discharge /Kristina [phone] Discharge Address: [address] [place] CPT Code CPT Code 67232 _ (1) Schizophrenia Schizophrenia type: paranoid schizophrenia Qualified Code(s): F20.0 - Paranoid schizophrenia (2) Hypertension Hypertension type: unspecified Qualified Code(s): I10 - Essential (primary) hypertension (3) Hyperlipidemia Hyperlipidemia type: unspecified Qualified Code(s): E78.5 - Hyperlipidemia, unspecified
[2018-11-24] MEDS: CITALOPRAM 20 MG TAB PO SCH (08:50)
[2018-11-24] MEDS: LORATADINE 10 MG TAB PO SCH (08:51)
[2018-11-24] MEDS: DIVALPROEX EXTENDED RELEASE 500 MG TAB PO SCH ×2 (08:52→21:01)
[2018-11-24] MEDS: HALOPERIDOL 5 MG TAB PO SCH (08:52)
[2018-11-24] MEDS: FLUTICASONE PROPIONATE NA SPR 16 GM BTL SCH (08:52)
[2018-11-24] MEDS: AMLODIPINE BESYLATE 5 MG TAB PO SCH (08:53)
[2018-11-24] MEDS: ATORVASTATIN 10 MG TAB PO SCH (08:53)
[2018-11-24] MEDS: PANTOprazole 40 MG TAB PO SCH (08:54)
--- NOTE | 2018-11-24 11:10 | Psychiatric Progress Note ---
Date of Service November 24, 2018 Impression / Recommendations Impression 38 yo CM with h/o schizophrenia who was admitted for acute decompensation. Planning to continue monthly dosing of Invega Sustenna. Pt remains compliant with PO Depakote as well. Pt has shown improvement with current medication regimen; however, was not permitted to return home with his mother. Plan at this time is for transfer to a personal ch[facility], and he has been accepted. Will need to continue to coordinate arrangements. Despite improvement, patient is at high risk of decompensation if her were to be discharged prematurely and without adequate safe housing options. (1) Schizophrenia: 11/07/18: - Invega 3mg PO qhs (zyprexa 5mg qhs prn as IM override if refusing PO) 11/08/18: Patient refusing and non-compliant with meds outpatient. Will change risperdal to Invega with plan for WHITMAN sustenna today. Patient has been on Invega before, was improved and tolerated medication per collateral obtained. Will obtain second physician opinion for IM override today. Lipid panel was within normal limits. 303 paperwork filled out, likely court hearing on Sunday. - Increase Depakote ER to 1000mg qhs for mood 11/09 -continue current medications; received Invega Sustenna 234 mg IM today. -Continue Depakote for mood stabilization -patient is hyperverbal, pressured, irritable at times. -303 hearing scheduled for Sunday. We will need family meeting with mother once appropriate. -Continue private room until symptoms are better controlled and he can tolerate a roommate. 11/10 -haloperidol 5 mg every 6 hours as needed for psychosis. -Patient signed a release for his mother, will need to schedule a family meeting once he is less psychotic and able to tolerate it. 11/11: 303 hearing resulted in 20 days, patient has been cooperative and taking medications. Next Invega sustenna dose of 156mg due on 11/16/18. VPA level today was 28 and will increase Depakote ER to 500mg qam and 1000mg qhs. Continue prn haldol. 11/12: Patient seems to be with some improvement in mood and paranoia today. Was redirectable and did not perseverate on the neighbors like yesterday. Did report about his mother and that she is his mother. Nursing reports patient remains erratic and has periods of calm. Continue to treat for stabilization. 11/13: continues to be calm and able to have a conversation and answer questions today. Decreased paranoia, but circumstantial and tangential at times. Denies SI /Hi/aVH. Family meeting with mother on Tuesday 11/14 - Add Haldol 5 mg BID - Continue other meds with next Sustenna injection due on 11/16 - Continue efforts to destimulate 11/15 - Continue current medication regimen - Second loading injection for Sustenna scheduled for 11/16 - Family meeting scheduled for this afternoon with his mother 11/16 -Continue treatment for stabilization -Second loading invega given today 11/17 -Continue current medications -No side effects from invega noted -discharge planning 11/18 -Continue current regimen -work on coping mechanisms -discharge planning 11/19 -Continue current regimen -Discharge planning 11/20 -Continue current regimen -Discharge planning 11/21 -Continue current regimen -Discharge planning -Next Invega 117mg due on 12/17/18 -Continue Depakote ER 500mg qam and 1000mg qhs -Continue Haldol 5mg bid -Continue Celexa 10mg daily 11/22 - Continue current medication regimen - hydroxyzine prn for sleep - Plan is for transfer to a personal ch[facility] at discharge, continue to coordinate 11/23 - Continue current medication regimen - Plan is for transfer to a personal [facility] at discharge, pending acceptance 11/23 - Continue current medication regimen - Change Haldol to 10mg qhs given daytime sedation - Plan is for transfer to a personal ch[facility] at discharge, pending acceptance (2) Hypertension: - Amlodipine 5mg daily (home med) (3) Hyperlipidemia: - Atovastatin 10mg daily (home med) Inventory Assets Strengths: future oriented, access to care Needs: medications and therapy Risk Factors Assessment Male: Yes : Yes Do You Have Access To A Gun?: No Mental Health Diagnoses: Yes Substance Use Disorders: No Hopelessness: No Protective Factors Assessment Responsible for Young Children: No Employed: No Interval History Identifying Information 38 yo male admitted on a 302 with decompensation of schizophrenia in the setting of medication noncompliance. Pt was admitted involuntarily on 11/07/18 13:50, 303 was granted on 11/11/18. Chief Complaint "I'm just having arthritis pain" Review of Systems Sleep Information Total Hours of Sleep: 7.25 Sleep Comments: pt on q-15 minute checks Meal Information Percent Meal Consumed - Breakfast: 100 Percent Meal Consumed - Lunch: 100 Percent Meal Consumed - Dinner: 100 Subjective Subjective Patient states that he is fine, but having arthritis pain. He states that he got it from getting hit by the farm animals. States that he lays down in bed during the day to keep warm. Per nursing, patient has been sleepy during the day and falls asleep in group and sleeps in his room. He states he is looking forward to going to the living facility and did not endorse any paranoia or delusions. Denies SI/HI/aVH Patient was seen & assessed and interval progress reviewed with Nursing Physical Exam Psychiatric A+Ox3, euthymic affect Apperance: appropriately dressed and appropriately groomed Eye Contact: + fair eye contact Motor Behavior: no abnormal motor movements Speech: normal rate/rhythm/volume of speech Affect: mood congruent with affect Thought Process: goal directed thought process Thought Content: reality based without delusions Suicidal Thoughts: denies suicidal thoughts Homicidal Thoughts: denies homicidal thoughts Hallucinations: no auditory hallucinations and no visual hallucinations Cognition: recent memory grossly intact and remote memory grossly intact Estimated Intelligence: + below average estimated intelligence Insight: + fair insight Judgement: + fair judgement Vital Signs (Past 24 Hours) Last Vital Signs Temp 36.4 C L 11/24/18 06:53 Pulse 88 11/24/18 06:54 Resp 18 11/24/18 06:53 BP 123/87 11/24/18 06:54 Results & Data Current Inpatient Medications Current Inpatient Medications: Current Inpatient Medications Al Hydrox/Mg Hydrox/Simethicone (Maalox) 30 ml PO Q4H PRN PRN Reason: GI Upset Stop: 12/07/18 06:24 Amlodipine Besylate (Norvasc) 5 mg PO QAM [facility] Stop: 12/07/18 15:44 Last Admin: 11/24/18 08:53 Dose: 5 mg Atorvastatin Calcium (Lipitor) 10 mg PO QAM [facility] Stop: 12/08/18 08:59 Last Admin: 11/24/18 08:53 Dose: 10 mg Bismuth Subsalicylate (Kaopectate) 15 ml PO PRN PRN PRN Reason: Loose Stool Stop: 12/07/18 06:24 Citalopram Hydrobromide (Celexa) 10 mg PO QAM [facility] Stop: 12/18/18 14:29 Last Admin: 11/24/18 08:50 Dose: 10 mg Divalproex Sodium (Depakote Extended Release) 500 mg PO QAM [facility] Stop: 12/11/18 10:14 Last Admin: 11/24/18 08:52 Dose: 500 mg Divalproex Sodium (Depakote Extended Release) 1,000 mg PO HS [facility]PL[facility] Stop: 12/11/18 21:59 Last Admin: 11/23/18 21:00 Dose: 1,000 mg Fluticasone Propionate (Flonase) 1 sprays NA DAILY REPLACED BY [facility] Stop: 12/12/18 09:59 Last Admin: 11/24/18 08:52 Dose: 1 sprays Haloperidol (Haldol) 5 mg PO Q4H PRN PRN Reason: psychosis Stop: 12/10/18 08:45 Last Admin: 11/15/18 13:44 Dose: 5 mg Haloperidol (Haldol) 5 mg PO BID [facility]PL[facility] Stop: 12/14/18 11:29 Last Admin: 11/24/18 08:52 Dose: 5 mg Hydroxyzine HCl (Vistaril) 50 mg PO HSZ PRN PRN Reason: Insomnia Stop: 12/07/18 06:24 Last Admin: 11/21/18 21:12 Dose: 50 mg Hydroxyzine HCl (Vistaril) 25 mg PO Q4H PRN PRN Reason: Anxiety Stop: 12/07/18 06:24 Last Admin: 11/11/18 12:56 Dose: 25 mg Loratadine (Claritin) 10 mg PO QAM [facility]PL[facility] Stop: 12/08/18 08:59 Last Admin: 11/24/18 08:51 Dose: 10 mg Magnesium Hydroxide (Milk Of Magnesia) 30 ml PO DAILY PRN PRN Reason: Heartburn Stop: 12/07/18 06:24 Pantoprazole Sodium (Protonix) 40 mg PO QAM REPLACED [facility] Stop: 12/08/18 08:59 Last Admin: 11/24/18 08:54 Dose: 40 mg Sodium Chloride ([place] Nasal) 1 - 2 sprays NA PRN PRN PRN Reason: Nasal Dryness/Congestion Stop: 12/07/18 06:24 Post Discharge Appointments Primary Care Physician Name Of Family Doctor: [facility] - Dr Rodrick Antonio Primary Care Date of Appointment with PCP: 11/25/18 Time of Appointment with PCP: 9am Provider Appointment Comment: [address] [place] [address] Psychiatrist Name of Psychiatrist: [facility] - to be set after intake completed Psychiatrist's Time of Appointment with Psychiatrist: Walk-ins: , Sun, and between 8- 3pm Psychiatric Appointment Comment: [address], [address], [place] [address] Therapist Name of Therapist: [facility] - STEP set up and charger 7:30-8am Therapist's Date of Therapist Appointment: 11/22/18 Time of Therapist Appointment: 9am Therapy Appointment Comment: [address], [address], [place] [address] Informal Waiter/Waitress Name of Informal Waiter/Waitress: [facility] Phone Number for Informal Waiter/Waitress: [phone] Date of Appointment with Informal Waiter/Waitress: 11/21/18 Time of Appointment with Informal Waiter/Waitress: 10am Case Management Appointment Comment: [address] [facility], [place] [address] Partial or Psych Rehab Name of Partial or Psych Rehab: [facility] Phone Number of Partial or Psych Rehab: [phone] Partial or Psych Rehab Appointment Comment: [address] [place], [place] [address] [address] Aviation Project Engineer Name of Aviation Project Engineer: [facility] Phone Number of Aviation Project Engineer: [phone] Aviation Project Engineer Appointment Comment: [address] [place], [place] [address] [address] Contact Information Discharge /Kristina [phone] Discharge Address: [facility] [address] [facility] [place] [address] CPT Code CPT Code 26651 _ (1) Schizophrenia Schizophrenia type: paranoid schizophrenia Qualified Code(s): F20.0 - Paranoid schizophrenia (2) Hypertension Hypertension type: unspecified Qualified Code(s): I10 - Essential (primary) hypertension (3) Hyperlipidemia Hyperlipidemia type: unspecified Qualified Code(s): E78.5 - Hyperlipidemia, unspecified
[2018-11-24] MEDS ORDERED: HALOPERIDOL 5 MG TAB PO SCH ×2 (22:00)
[2018-11-25] MEDS ORDERED: SUMAtriptan succinate 50 MG TAB PO PRN (06:55)
[2018-11-25] MEDS: FLUTICASONE PROPIONATE NA SPR 16 GM BTL SCH (08:23)
[2018-11-25] MEDS: CITALOPRAM 20 MG TAB PO SCH (08:28)
[2018-11-25] MEDS: DIVALPROEX EXTENDED RELEASE 500 MG TAB PO SCH ×2 (08:29→20:53)
[2018-11-25] MEDS: AMLODIPINE BESYLATE 5 MG TAB PO SCH (08:29)
[2018-11-25] MEDS: LORATADINE 10 MG TAB PO SCH (08:29)
[2018-11-25] MEDS: PANTOprazole 40 MG TAB PO SCH (08:29)
[2018-11-25] MEDS: ATORVASTATIN 10 MG TAB PO SCH (08:29)
--- NOTE | 2018-11-25 10:50 | Psychiatric Progress Note ---
Date of Service November 25, 2018 Impression / Recommendations Impression 38 yo CM with h/o schizophrenia who was admitted for acute decompensation. Planning to continue monthly dosing of Invega Sustenna. Pt remains compliant with PO Depakote as well. Pt has shown improvement with current medication regimen; however, was not permitted to return home with his mother. Plan at this time is for transfer to a personal ch[facility], and he has been accepted. Will need to continue to coordinate arrangements. Despite improvement, patient is at high risk of decompensation if her were to be discharged prematurely and without adequate safe housing options. (1) Schizophrenia: 11/07/18: - Invega 3mg PO qhs (zyprexa 5mg qhs prn as IM override if refusing PO) 11/08/18: Patient refusing and non-compliant with meds outpatient. Will change risperdal to Invega with plan for WHITMAN sustenna today. Patient has been on Invega before, was improved and tolerated medication per collateral obtained. Will obtain second physician opinion for IM override today. Lipid panel was within normal limits. 303 paperwork filled out, likely court hearing on Sunday. - Increase Depakote ER to 1000mg qhs for mood 11/09 -continue current medications; received Invega Sustenna 234 mg IM today. -Continue Depakote for mood stabilization -patient is hyperverbal, pressured, irritable at times. -303 hearing scheduled for Sunday. We will need family meeting with mother once appropriate. -Continue private room until symptoms are better controlled and he can tolerate a roommate. 11/10 -haloperidol 5 mg every 6 hours as needed for psychosis. -Patient signed a release for his mother, will need to schedule a family meeting once he is less psychotic and able to tolerate it. 11/11: 303 hearing resulted in 20 days, patient has been cooperative and taking medications. Next Invega sustenna dose of 156mg due on 11/16/18. VPA level today was 28 and will increase Depakote ER to 500mg qam and 1000mg qhs. Continue prn haldol. 11/12: Patient seems to be with some improvement in mood and paranoia today. Was redirectable and did not perseverate on the neighbors like yesterday. Did report about his mother and that she is his mother. Nursing reports patient remains erratic and has periods of calm. Continue to treat for stabilization. 11/13: continues to be calm and able to have a conversation and answer questions today. Decreased paranoia, but circumstantial and tangential at times. Denies SI /Hi/aVH. Family meeting with mother on Tuesday 11/14 - Add Haldol 5 mg BID - Continue other meds with next Sustenna injection due on 11/16 - Continue efforts to destimulate 11/15 - Continue current medication regimen - Second loading injection for Sustenna scheduled for 11/16 - Family meeting scheduled for this afternoon with his mother 11/16 -Continue treatment for stabilization -Second loading invega given today 11/17 -Continue current medications -No side effects from invega noted -discharge planning 11/18 -Continue current regimen -work on coping mechanisms -discharge planning 11/19 -Continue current regimen -Discharge planning 11/20 -Continue current regimen -Discharge planning 11/21 -Continue current regimen -Discharge planning -Next Invega 117mg due on 12/17/18 -Continue Depakote ER 500mg qam and 1000mg qhs -Continue Haldol 5mg bid -Continue Celexa 10mg daily 11/22 - Continue current medication regimen - hydroxyzine prn for sleep - Plan is for transfer to a personal ch[facility] at discharge, continue to coordinate 11/23 - Continue current medication regimen - Plan is for transfer to a personal ch[facility] at discharge, pending acceptance 11/23 - Continue current medication regimen - Change Haldol to 10mg qhs given daytime sedation - Plan is for transfer to a personal ch[facility] at discharge, pending acceptance 11/24 - Continue current medication regimen - AIMS exam score today of 0 - Plan is for transfer to a personal ch[facility] at discharge, pending acceptance (2) Hypertension: - Amlodipine 5mg daily (home med) (3) Hyperlipidemia: - Atovastatin 10mg daily (home med) Inventory Assets Strengths: future oriented, access to care Needs: medications and therapy Risk Factors Assessment Male: Yes : Yes Do You Have Access To A Gun?: No Mental Health Diagnoses: Yes Substance Use Disorders: No Hopelessness: No Protective Factors Assessment Responsible for Young Children: No Employed: No Interval History Identifying Information 38 yo male admitted on a 302 with decompensation of schizophrenia in the setting of medication noncompliance. Pt was admitted involuntarily on 11/07/18 13:50, 303 was granted on 11/11/18. Chief Complaint "I had a headache this morning" Review of Systems Sleep Information Total Hours of Sleep: 6.5 Sleep Comments: pt given vistaril per rn. pt on q-15 minute checks Meal Information Percent Meal Consumed - Breakfast: 100 Percent Meal Consumed - Lunch: 100 Percent Meal Consumed - Dinner: 100 Subjective Subjective Patient reports he is doing ok but had a "migraine like" headache this morning. He states he is waiting to find out about his living situation. He denies SI/HI/ aVH and has been cooperative and compliant with meds and unit milieu. Patient was seen & assessed and interval progress reviewed with Treatment Team and Nursing Physical Exam Psychiatric A+Ox3, euthymic affect Apperance: appropriately dressed and appropriately groomed Eye Contact: + fair eye contact Motor Behavior: no abnormal motor movements AIMS completed with score of 0 Speech: normal rate/rhythm/volume of speech Affect: euthymic affect and mood congruent with affect Thought Process: goal directed thought process Thought Content: reality based without delusions Suicidal Thoughts: denies suicidal thoughts Homicidal Thoughts: denies homicidal thoughts Hallucinations: no auditory hallucinations and no visual hallucinations Cognition: attention grossly intact Estimated Intelligence: + below average estimated intelligence Insight: + fair insight Judgement: + fair judgement Vital Signs (Past 24 Hours) Last Vital Signs Temp 36.4 C L 11/25/18 07:00 Pulse 102 H 11/25/18 07:00 Resp 18 11/25/18 07:00 BP 131/88 11/25/18 07:00 Results & Data Current Inpatient Medications Current Inpatient Medications: Current Inpatient Medications Al Hydrox/Mg Hydrox/Simethicone (Maalox) 30 ml PO Q4H PRN PRN Reason: GI Upset Stop: 12/07/18 06:24 Amlodipine Besylate (Norvasc) 5 mg PO QAM [facility] Stop: 12/07/18 15:44 Last Admin: 11/25/18 08:29 Dose: 5 mg Atorvastatin Calcium (Lipitor) 10 mg PO QAM [facility] Stop: 12/08/18 08:59 Last Admin: 11/25/18 08:29 Dose: 10 mg Bismuth Subsalicylate (Kaopectate) 15 ml PO PRN PRN PRN Reason: Loose Stool Stop: 12/07/18 06:24 Citalopram Hydrobromide (Celexa) 10 mg PO QAM [facility] Stop: 12/18/18 14:29 Last Admin: 11/25/18 08:28 Dose: 10 mg Divalproex Sodium (Depakote Extended Release) 500 mg PO QAM [facility] Stop: 12/11/18 10:14 Last Admin: 11/25/18 08:29 Dose: 500 mg Divalproex Sodium (Depakote Extended Release) 1,000 mg PO HS [facility] Stop: 12/11/18 21:59 Last Admin: 11/24/18 21:01 Dose: 1,000 mg Fluticasone Propionate (Flonase) 1 sprays NA DAILY [facility] Stop: 12/12/18 09:59 Last Admin: 11/25/18 08:23 Dose: 1 sprays Haloperidol (Haldol) 5 mg PO Q4H PRN PRN Reason: psychosis Stop: 12/10/18 08:45 Last Admin: 11/15/18 13:44 Dose: 5 mg Haloperidol (Haldol) 10 mg PO [facility] Stop: 12/25/18 21:59 Hydroxyzine HCl (Vistaril) 50 mg PO HSZ PRN PRN Reason: Insomnia Stop: 12/07/18 06:24 Last Admin: 11/24/18 21:02 Dose: 50 mg Hydroxyzine HCl (Vistaril) 25 mg PO Q4H PRN PRN Reason: Anxiety Stop: 12/07/18 06:24 Last Admin: 11/24/18 17:44 Dose: 25 mg Lor[facility]ad[facility]itin) [facility]: 12/08/18 08:59 Last Admin: 11/25/18 08:29 Dose: 10 mg Magnesium Hydroxide (Milk Of Magnesia) 30 ml PO DAILY PRN PRN Reason: Heartburn Stop: 12/07/18 06:24 Pantoprazole Sodium (Protonix) [facility] Stop: 12/08/18 08:59 Last Admin: 11/25/18 08:29 Dose: 40 mg Sodium Chloride (Parkman Nasal) 1 - 2 sprays NA PRN PRN PRN Reason: Nasal Dryness/Congestion Stop: 12/07/18 06:24 Sumatriptan Succinate (Imitrex) 50 mg PO Q8 PRN PRN Reason: Migraine Headache Stop: 12/25/18 06:54 Last Admin: 11/25/18 08:22 Dose: 50 mg Post Discharge Appointments Primary Care Physician Name Of Family Doctor: [facility] - Dr Rodrick Antonio Primary Care Date of Appointment with PCP: 11/25/18 Time of Appointment with PCP: 9am Provider Appointment Comment: [address], [place] [address] Psychiatrist Name of Psychiatrist: [facility] - to be set after intake completed Psychiatrist's Time of Appointment with Psychiatrist: Walk-ins: , Sun, and between 8- 3pm Psychiatric Appointment Comment: [address], [address], [place] [address] Therapist Name of Therapist: [facility] - STEP supervisory it specialist 7:30-8am Therapist's Date of Therapist Appointment: 11/22/18 Time of Therapist Appointment: 9am Therapy Appointment Comment: [address], [address], [place] [address] Ip Litigation Paralegal Name of Ip Litigation Paralegal: [facility] Phone Number for Ip Litigation Paralegal: [phone] Date of Appointment with Ip Litigation Paralegal: 11/21/18 Time of Appointment with Ip Litigation Paralegal: 10am Case Management Appointment Comment: [address] [facility], [place] Partial or Psych Rehab Name of Partial or Psych Rehab: [facility] Phone Number of Partial or Psych Rehab: [phone] Partial or Psych Rehab Appointment Comment: [address] [place], [place] [address] [address] Police Surgeon Name of Police Surgeon: [facility] Phone Number of Police Surgeon: [phone] Police Surgeon Appointment Comment: [address] [place] [address] Contact Information Discharge /Kristina [phone] Discharge Address: [facility] [address] [facility] [place] CPT Code CPT Code 65733 _ (1) Schizophrenia Schizophrenia type: paranoid schizophrenia Qualified Code(s): F20.0 - Paranoid schizophrenia (2) Hypertension Hypertension type: unspecified Qualified Code(s): I10 - Essential (primary) hypertension (3) Hyperlipidemia Hyperlipidemia type: unspecified Qualified Code(s): E78.5 - Hyperlipidemia, unspecified
[2018-11-25] MEDS ORDERED: HALOPERIDOL 5 MG TAB PO SCH (22:00)
[2018-11-26] MEDS: CITALOPRAM 20 MG TAB PO SCH (08:29)
[2018-11-26] MEDS: ATORVASTATIN 10 MG TAB PO SCH (08:31)
[2018-11-26] MEDS: AMLODIPINE BESYLATE 5 MG TAB PO SCH (08:31)
[2018-11-26] MEDS: DIVALPROEX EXTENDED RELEASE 500 MG TAB PO SCH (08:31)
[2018-11-26] MEDS: LORATADINE 10 MG TAB PO SCH (08:31)
[2018-11-26] MEDS: PANTOprazole 40 MG TAB PO SCH (08:31)
[2018-11-26] MEDS: FLUTICASONE PROPIONATE NA SPR 16 GM BTL SCH (08:34)
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
== END 2018-11-26 11:17 | disposition home or self-care (01) | DRG 885 ==
LOC: SUATTDRO 13:50 → 3S 13:50